=== PATIENT | female | born 1975 | race Caucasian/White ===

== ENCOUNTER → 2016-12-31 | Outpatient (CLI) | payer BC ==
[2016-12-31 16:42] VITALS: BMI 34.5
[2016-12-31 16:51] VITALS: BP 137/88; PULSE 88; RESP 16; TEMP 98.1
[2016-12-31 18:07] LABS: CH 31.5; CHCM 33.7; HCT 39.8 % (34.0-46.0); HDW 2.39; HGB 13.5 gm/dL (11.4-16.0); MCH 31.8 pg (25.0-35.0); MCHC 33.9 g/dL (31.0-37.0); MCV 93.9 fL (80.0-100.0); Mean Platelet Volume 7.2; RBC 4.23 m/uL (3.80-5.40); RDW 12.6 % (11.5-15.5); WBC 8.8 k/uL (3.8-10.6)
[2016-12-31 18:31] LABS: INR 1.1 (<1.1); Partial Thromboplastin Time 25.4 sec (22.0-30.0); Prothrombin Time 10.8 sec (9.0-12.0)
[2016-12-31 18:38] LABS: ALT 45 U/L (9-52); AST 32 U/L (14-36); Alkaline Phosphatase 65 U/L (38-126); Anion Gap 11 mmol/L; Blood Urea Nitrogen 20 mg/dL (7-17); Calcium 9.7 mg/dL (8.4-10.2); Carbon Dioxide 29 mmol/L (22-30); Chloride 102 mmol/L (98-107); Cholesterol 174 mg/dL (<200); Glucose 78 mg/dL (74-99); HDL Cholesterol 52 mg/dL (40-60); Iron 51 ug/dL (37-170); Non-African American GFR(MDRD) >60 (>60 ml/min/1.73 sqM); Phosphorous 3.8 mg/dL (2.5-4.5); Potassium 4.8 mmol/L (3.5-5.1); Sodium 142 mmol/L (137-145); Total Bilirubin 0.4 mg/dL (0.2-1.3); Total Protein 6.7 g/dL (6.3-8.2); Triglycerides 98 mg/dL (<150)
[2016-12-31 18:50] LABS: % Iron Saturation 19.2 % (20-50); Prealbumin 19 mg/dL (18-36); Total Iron Binding Capacity 266 ug/dL (265-497)
[2016-12-31 19:43] LABS: Vitamin B12 711 pg/mL (239-931)
[2017-01-05 18:28] LABS: Selenium 161 mcg/L (63-160)
--- NOTE | 2017-02-04 00:34 | P.PN ---
Progress Note - Text DATE OF SERVICE: 12/31/2016 CHIEF COMPLAINT: Followup sleeve gastrectomy. 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 She is now 6 months out from her procedure. Her highest weight for her 5 feet 3 frame was 273 pound. [place] body weight is 140 pounds. Today she comes in weighing 198 pounds. She has lost 75 pound in 6 months. Percent excess weight loss is 63%. Body mass index reduced from 47.7 down to 34.6. BMI point reduction is 13. In the last 3 months ago she has already lost another 19 pounds. No reports of gastroesophageal reflux disease. She does report intermittent constipation. She reports taking moderate amount of vitamin C . Her personal goal is to lose a minimum of 100 pounds. PAST MEDICAL HISTORY: 1. Osteoarthritis of the bilateral knees, improved. 2. Osteoarthritis of the bilateral hips, improved. 3. Osteoarthritis of the lower back, improved. 4. Seasonal allergies. 5. Depression, improved. 6. Obstructive sleep apnea, improved. 7. Metabolic syndrome, improved. PAST SURGICAL HISTORY: 1. . 2. Cholecystectomy. 3. Tubal ligation. 4. Foot surgery. 5. Knee surgery. 6. Nasal surgery. 7. Dental surgery. 8. Upper endoscopy. 9. Sleeve gastrectomy. MEDICATIONS: 1. Zinc. 2. Vitamin A. 3. MiraLax. 4. Omeprazole. 5. Nystatin powder. 6. Meclizine. 7. Vitamin D. 8. Cymbalta. 9. Zyrtec. 10. Nitroglycerin ointment, rectal. ALLERGIES: Denies. SOCIAL HISTORY: Lifelong nontobacco user. No heavy alcohol use. FAMILY HISTORY: Pertinent for morbid obesity. REVIEW OF SYSTEMS: CONSTITUTIONAL: Highest weight of 273 pounds. [place] body weight of 140 pounds. Attained weight loss of 75 pounds. Percent weight loss of 56%. Recent weight loss of 19 pounds in 3 months. GASTROINTESTINAL: Resolved gastroesophageal reflux disease. She has constipation. RESPIRATORY: Resolved obstructive sleep apnea. Denies dyspnea on exertion. MUSCULOSKELETAL: Resolved osteoarthritis of the lower back including hips and knees. HEENT: Wears glasses. No reports of dysphagia. No reports of troubles with hearing. ENDOCRINE: No reports of active diabetes for hypothyroidism. CARDIOVASCULAR: No reports of recent chest pain or heart attack. PSYCH: History of depression. No recent psychosis. HEMATOLOGIC: No reports of easy bruising or bleeding. No reports of DVTs or pulmonary embolism. NEURO: No reports of strokes or seizure disorders. PHYSICAL EXAM: VITAL SIGNS: 98.1, 88, 16, 137/88, 5 foot 3-1/2, 198 pounds. Body mass index of 34.6. ABDOMEN: Soft, nontender, nondistended. No palpable incisional hernias. CARDIOVASCULAR: Regular rate, Regular rhythm. 2 + radial pulse. GENERAL: Well-developed female in no acute distress. HEENT: No scleral icterus. Extraocular movements grossly intact. Moist buccal mucosa. Head is atraumatic, normocephalic. NECK: Neck is supple without lymphadenopathy. No jugular venous distention. CHEST: Nonlabored respiratons. Equal bilateral excursions. MUSCULOSKELETAL: Trace 1+ bilateral pitting edema. No clubbing, cyanosis. NEURO: Cranial nerves II through XII grossly intact. No focal or lateralizing signs. PSYCH: Appropriate affect. Alert and oriented to person, place and time. LABS: Hemoglobin normal at 13.5. BUN elevated at 20. Percent excess weight loss low at 19.2 for iron. LDL elevated at 102. Vitamin D moderately elevated at 106. Sodium elevated. ASSESSMENT: 1. Status post sleeve gastrectomy. 2. Body mass index reduced from 47.7 down to 34.6. 3. Inadequate protein intake. 4. Vitamin A deficiency. 5. Zinc deficiency. 6. Morbid obesity due to excess calories. 7. Osteoarthritis of lower back secondary to morbid obesity. 8. Osteoarthritis of bilateral knees moderate to severe secondary to morbid obesity. 9. Osteoarthritis of the bilateral hips secondary to morbid obesity, moderate. 10. Depression without psychosis. 11. Hypertensive heart disease without cardiomyopathy, improved. 12. Obstructive sleep apnea, resolved. 13. Metabolic syndrome, improved. 14. Dietary surveillance and counseling. 15. Zinc deficiency. 16. Vitamin D excess. 17. Medical noncompliance to dietary regimen following bariatric surgery. 18. Selenium excess. PLAN: 1. She has excellent nutrition without deficiencies. I have asked her to cut back on her vitamin D intake. 2. Also I have asked her to evaluate her selenium exposure. Selenium-rich foods were reviewed. 3. As she is doing remarkably well, recommend followup in 3 months; otherwise 9 months' postop for March 2017. 4. She does have history of anal fissures where she will continue with her present treatment. 5. Recommend followup sooner should she develop any abdominal pain.
== END | disposition home or self-care (01) ==
LOC: BARWHC3 15:37
PROVIDERS: ATTEND Surgery Plastic and Reconstructive Surgery
DX: Z48.815 Encounter for surgical aftercare following surgery on the digestive system (principal); Z71.3 Dietary counseling and surveillance; E66.01 Morbid (severe) obesity due to excess calories; Z98.84 Bariatric surgery status; E21.1 Secondary hyperparathyroidism, not elsewhere classified; E89.1 Postprocedural hypoinsulinemia; D50.8 Other iron deficiency anemias; E44.0 Moderate protein-calorie malnutrition; E55.9 Vitamin D deficiency, unspecified; K74.1 Hepatic sclerosis; N19 Unspecified kidney failure; K50.90 Crohn's disease, unspecified, without complications
CPT/HCPCS: 80053; 80061; 82306; 82525; 82607; 82728; 82746; 83036; 83540; 83550; 83735; 83970; 84100; 84134; 84255; 84425; 84443; 84590; 84630; 85027; 85610; 85730; 99211

== ENCOUNTER → 2017-05-13 | Outpatient (CLI) | payer BC ==
[2017-05-13 16:21] VITALS: BMI 31.2
[2017-05-13 16:39] VITALS: BP 110/57; PULSE 66; TEMP 97.7
[2017-05-13 18:02] LABS: CH 31.6; CHCM 33.8; HCT 39.6 % (34.0-46.0); HDW 2.36; HGB 13.7 gm/dL (11.4-16.0); MCH 32.5 pg (25.0-35.0); MCHC 34.6 g/dL (31.0-37.0); MCV 93.8 fL (80.0-100.0); Mean Platelet Volume 6.9; RBC 4.22 m/uL (3.80-5.40); RDW 12.8 % (11.5-15.5); WBC 7.1 k/uL (3.8-10.6)
[2017-05-13 18:10] LABS: Partial Thromboplastin Time 24.5 sec (22.0-30.0); Prothrombin Time 10.4 sec (9.0-12.0)
[2017-05-13 18:12] LABS: ALT 37 U/L (9-52); AST 29 U/L (14-36); Alkaline Phosphatase 53 U/L (38-126); Anion Gap 8 mmol/L; Blood Urea Nitrogen 23 mg/dL (7-17); Calcium 9.6 mg/dL (8.4-10.2); Carbon Dioxide 27 mmol/L (22-30); Chloride 103 mmol/L (98-107); Cholesterol 202 mg/dL (<200); Glucose 73 mg/dL (74-99); HDL Cholesterol 59 mg/dL (40-60); Iron 68 ug/dL (37-170); Magnesium 2.1 mg/dL (1.6-2.3); Non-African American GFR(MDRD) >60 (>60 ml/min/1.73 sqM); Phosphorous 4.4 mg/dL (2.5-4.5); Potassium 4.7 mmol/L (3.5-5.1); Sodium 138 mmol/L (137-145); Total Bilirubin 0.5 mg/dL (0.2-1.3); Total Protein 6.6 g/dL (6.3-8.2)
[2017-05-13 18:23] LABS: % Iron Saturation 25.5 % (20-50); Prealbumin 23 mg/dL (18-36); Total Iron Binding Capacity 267 ug/dL (265-497)
[2017-05-13 19:17] LABS: Vitamin B12 585 pg/mL (239-931)
[2017-05-13 21:00] LABS: Hemoglobin A1C 5.1 % (4.2-6.1)
[2017-05-22 14:20] LABS: Selenium 116 mcg/L (63-160)
--- NOTE | 2017-06-07 00:24 | P.PN ---
Progress Note - Text DATE OF SERVICE: 05/13/2017 CHIEF COMPLAINT: Followup sleeve gastrectomy. 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 She is now 10 months out from her procedure. Her highest weight for her 5 feet 3 frame was 273 pound. [place] body weight is 140 pounds. Today she comes in weighing 179 pounds. She has lost 94 pound in 10 months. Percent excess weight loss is 71 %. Body mass index reduced from 47.7 down to 31.2. BMI point reduction is 16.5. In the last 4 months, she has lost another 19 pounds. No reports of gastroesophageal reflux disease. She reports moderate skin along her arms and thighs. No reports of gastroesophageal reflux disease. No reports of dumping syndrome. Her constipation is resolved. PAST MEDICAL HISTORY: 1. Osteoarthritis of the bilateral knees, improved. 2. Osteoarthritis of the bilateral hips, improved. 3. Osteoarthritis of the lower back, improved. 4. Seasonal allergies. 5. Depression, improved. 6. Obstructive sleep apnea, improved. 7. Metabolic syndrome, improved. PAST SURGICAL HISTORY: 1. . 2. Cholecystectomy. 3. Tubal ligation. 4. Foot surgery. 5. Knee surgery. 6. Nasal surgery. 7. Dental surgery. 8. Upper endoscopy. 9. Sleeve gastrectomy. MEDICATIONS: 1. Zinc. 2. Vitamin A. 3. MiraLax. 4. Omeprazole. 5. Nystatin powder. 6. Meclizine. 7. Vitamin D. 8. Cymbalta. 9. Zyrtec. 10. Nitroglycerin ointment, rectal. ALLERGIES: Denies. SOCIAL HISTORY: Lifelong nontobacco user. No heavy alcohol use. FAMILY HISTORY: Pertinent for morbid obesity. REVIEW OF SYSTEMS: CONSTITUTIONAL: Highest weight of 273 pounds. [place] body weight of 140 pounds. Attained weight loss of 94 pounds. Percent weight loss of 71%. Recent weight loss of 19 pounds in 3 months. GASTROINTESTINAL: Resolved gastroesophageal reflux disease. Constipation resolved. RESPIRATORY: Resolved obstructive sleep apnea. Denies dyspnea on exertion. MUSCULOSKELETAL: Resolved osteoarthritis of the lower back including hips and knees. HEENT: Wears glasses. No reports of dysphagia. No reports of troubles with hearing. ENDOCRINE: No reports of active diabetes for hypothyroidism. CARDIOVASCULAR: No reports of recent chest pain or heart attack. PSYCH: History of depression. No recent psychosis. HEMATOLOGIC: No reports of easy bruising or bleeding. No reports of DVTs or pulmonary embolism. NEURO: No reports of strokes or seizure disorders. PHYSICAL EXAM: VITAL SIGNS: 5 foot 3-1/2, 179 pounds. Body mass index of 31.2. Vital Signs 05/13/17 16:36 Temperature 97.7 F Pulse Rate 66 Blood Pressure 110/57 ABDOMEN: Soft, nontender, nondistended. No palpable incisional hernias. CARDIOVASCULAR: Regular rate, Regular rhythm. 2 + radial pulse. GENERAL: Well-developed female in no acute distress. HEENT: No scleral icterus. Extraocular movements grossly intact. Moist buccal mucosa. Head is atraumatic, normocephalic. NECK: Neck is supple without lymphadenopathy. No jugular venous distention. CHEST: Nonlabored respiratons. Equal bilateral excursions. MUSCULOSKELETAL: No clubbing, cyanosis or edema. NEURO: Cranial nerves II through XII grossly intact. No focal or lateralizing signs. PSYCH: Appropriate affect. Alert and oriented to person, place and time. SKIN: Good skin turgor. Well perfused. Has panniculitis. LABS: Laboratory Last Values WBC 7.1 k/uL (3.8-10.6) 05/13/17 17:40 RBC 4.22 m/uL (3.80-5.40) 05/13/17 17:40 Hgb 13.7 gm/dL (11.4-16.0) 05/13/17 17:40 Hct 39.6 % (34.0-46.0) 05/13/17 17:40 MCV 93.8 fL (80.0-100.0) 05/13/17 17:40 MCH 32.5 pg (25.0-35.0) 05/13/17 17:40 MCHC 34.6 g/dL (31.0-37.0) 05/13/17 17:40 RDW 12.8 % (11.5-15.5) 05/13/17 17:40 Plt Count 249 k/uL (150-450) 05/13/17 17:40 PT 10.4 sec (9.0-12.0) 05/13/17 17:40 INR 1.0 (<1.2) 05/13/17 17:40 APTT 24.5 sec (22.0-30.0) 05/13/17 17:40 Sodium 138 mmol/L (137-145) 05/13/17 17:40 Potassium 4.7 mmol/L (3.5-5.1) 05/13/17 17:40 Chloride 103 mmol/L (98-107) 05/13/17 17:40 Carbon Dioxide 27 mmol/L (22-30) 05/13/17 17:40 Anion Gap 8 mmol/L 05/13/17 17:40 BUN 23 mg/dL (7-17) H 05/13/17 17:40 Creatinine 0.70 mg/dL (0.52-1.04) 05/13/17 17:40 Est GFR (MDRD) Af Amer >60 (>60 ml/min/1.73 sqM) 05/13/17 17:40 Est GFR (MDRD) Non-Af >60 (>60 ml/min/1.73 sqM) 05/13/17 17:40 Glucose 73 mg/dL (74-99) L 05/13/17 17:[address] Glu mg/dL 100 mg/dL 05/13/17 17:40 Hemoglobin A1c 5.1 % (4.2-6.1) 05/13/17 17:40 Calcium 9.6 mg/dL (8.4-10.2) 05/13/17 17:40 Phosphorus 4.4 mg/dL (2.5-4.5) 05/13/17 17:40 Magnesium 2.1 mg/dL (1.6-2.3) 05/13/17 17:40 Iron 68 ug/dL (37-170) 05/13/17 17:40 TIBC 267 ug/dL (265-497) 05/13/17 17:40 % Saturation 25.5 % (20-50) 05/13/17 17:40 Ferritin 100 ng/mL (6-137) 05/13/17 17:40 Total Bilirubin 0.5 mg/dL (0.2-1.3) 05/13/17 17:40 AST 29 U/L (14-36) 05/13/17 17:40 ALT 37 U/L (9-52) 05/13/17 17:40 Alkaline Phosphatase 53 U/L (38-126) 05/13/17 17:40 Total Protein 6.6 g/dL (6.3-8.2) 05/13/17 17:40 Albumin 4.3 g/dL (3.5-5.0) 05/13/17 17:40 Prealbumin 23 mg/dL (18-36) 05/13/17 17:40 Triglycerides 91 mg/dL (<150) 05/13/17 17:40 Cholesterol 202 mg/dL (<200) H 05/13/17 17:40 LDL Cholesterol, Calc 125 mg/dL (0-99) H 05/13/17 17:40 HDL Cholesterol 59 mg/dL (40-60) 05/13/17 17:40 Vitamin A 49 ug/dL (38-106) 05/13/17 17:40 Vitamin B1 56 ug/L (38-122) 05/13/17 17:40 Vitamin B12 585 pg/mL (239-931) 05/13/17 17:40 Vitamin D 25-Hydroxy 42.2 ng/mL (30.0-100.0) 05/13/17 17:40 Folate >20.00 ng/mL (>2.75) 05/13/17 17:40 TSH 2.130 mIU/L (0.465-4.680) 05/13/17 17:40 PTH Intact 17.5 pg/mL (14.0-72.0) 05/13/17 17:40 Copper 1262 ug/L (810-1990) 05/13/17 17:40 Selenium 116 mcg/L (63-160) 05/13/17 17:40 Zinc 82 ug/dL (60-130) 05/13/17 17:40 ASSESSMENT: 1. Status post sleeve gastrectomy. 2. Body mass index reduced from 47.7 down to 31.2. 3. Panniculitis. 4. Morbid obesity due to excess calories, resolved. 5. Osteoarthritis of lower back secondary to morbid obesity, resolved. 6. Osteoarthritis of bilateral knees moderate to severe secondary to morbid obesity, resolved. 7. Osteoarthritis of the bilateral hips secondary to morbid obesity, moderate, resolved. 8. Depression without psychosis, stable 9. Hypertensive heart disease without cardiomyopathy, resolved. 10. Obstructive sleep apnea, resolved. 11. Metabolic syndrome, resolved. PLAN: 1. Recommend bariatric metabolic panel. 2. Recommend Nystatin powder for panniculitis. 3. May benefit from panniculectomy in the future. 4. Follow-up with [place] office in 2-3 weeks.
== END ==
LOC: BARWHC3 15:31
PROVIDERS: ATTEND Surgery Plastic and Reconstructive Surgery
DX: Z48.815 Encounter for surgical aftercare following surgery on the digestive system (principal); E66.01 Morbid (severe) obesity due to excess calories; M47.816 Spondylosis without myelopathy or radiculopathy, lumbar region; M17.0 Bilateral primary osteoarthritis of knee; M16.0 Bilateral primary osteoarthritis of hip; F32.9 Major depressive disorder, single episode, unspecified; I11.9 Hypertensive heart disease without heart failure; M79.3 Panniculitis, unspecified; Z68.31 Body mass index [BMI] 31.0-31.9, adult; Z98.84 Bariatric surgery status; Z79.899 Other long term (current) drug therapy
CPT/HCPCS: 36415; 80053; 80061; 82306; 82525; 82607; 82728; 82746; 83036; 83540; 83550; 83735; 83970; 84100; 84134; 84255; 84425; 84443; 84590; 84630; 85027; 85610; 85730; 97803; 99211

== ENCOUNTER → 2017-07-15 | Outpatient (CLI) | payer BC ==
[2017-07-15 15:52] LABS: CH 32.2; CHCM 34.4; HCT 40.5 % (34.0-46.0); HDW 2.32; HGB 13.3 gm/dL (11.4-16.0); MCV 94.1 fL (80.0-100.0); Mean Platelet Volume 7.6; RDW 12.9 % (11.5-15.5); WBC 7.1 k/uL (3.8-10.6)
[2017-07-15 16:10] LABS: Partial Thromboplastin Time 24.1 sec (22.0-30.0); Prothrombin Time 10.1 sec (9.0-12.0)
[2017-07-15 16:13] LABS: ALT 35 U/L (9-52); AST 26 U/L (14-36); Alkaline Phosphatase 53 U/L (38-126); Anion Gap 6 mmol/L; Blood Urea Nitrogen 23 mg/dL (7-17); Calcium 9.8 mg/dL (8.4-10.2); Carbon Dioxide 28 mmol/L (22-30); Chloride 102 mmol/L (98-107); Cholesterol 187 mg/dL (<200); Glucose 83 mg/dL (74-99); HDL Cholesterol 66 mg/dL (40-60); Magnesium 1.9 mg/dL (1.6-2.3); Non-African American GFR(MDRD) >60 (>60 ml/min/1.73 sqM); Phosphorus 4.3 mg/dL (2.5-4.5); Sodium 136 mmol/L (137-145); Total Bilirubin 0.3 mg/dL (0.2-1.3); Total Protein 6.5 g/dL (6.3-8.2)
[2017-07-15 16:57] LABS: Vitamin B12 687 pg/mL (239-931)
[2017-07-15 17:02] VITALS: BP 126/64; PULSE 66; RESP 16; TEMP 98.3; BMI 30.4
[2017-07-15 19:36] LABS: Hemoglobin A1C 5.1 % (4.2-6.1)
[2017-07-16 00:54] LABS: Iron Saturation 19.55 (12.00-45.00); Iron(FE) 52 ug/dL (50-170); Total Iron Binding Capacity 266 ug/dL (228-460)
[2017-07-17 17:31] LABS: Selenium 120 mcg/L (63-160)
--- NOTE | 2017-07-26 18:42 | P.PN ---
Subjective DATE OF SERVICE: 07/15/2017 CHIEF COMPLAINT: Followup sleeve gastrectomy. 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 She is 1 year out from her procedure. Her highest weight for her 5 feet 3-2 frame was 273 pound. [place] body weight is 140 pounds. Today she comes in weighing 174 pounds. She has lost 99 pound in 1 year. Percent excess weight loss is 74 %. Body mass index reduced from 47.7 down to 30.5. Her sleep apnea is resolved. She reports more energy. She is actually walking at least 27 miles a week. Her osteoarthritis of her hip and knees is moderately improved since 100 pound weight loss. She reports troubles with her pannus. She has history of severe scar of her abdomen which she seeks resection. Now she presents for her anniversary. PAST MEDICAL HISTORY: 1. Osteoarthritis of the bilateral knees, improved. 2. Osteoarthritis of the bilateral hips, improved. 3. Osteoarthritis of the lower back, improved. 4. Seasonal allergies. 5. Depression, improved. 6. Obstructive sleep apnea, improved. 7. Metabolic syndrome, improved. PAST SURGICAL HISTORY: 1. . 2. Cholecystectomy. 3. Tubal ligation. 4. Foot surgery. 5. Knee surgery. 6. Nasal surgery. 7. Dental surgery. 8. Upper endoscopy. 9. Sleeve gastrectomy. MEDICATIONS: 1. Zinc. 2. Vitamin A. 3. MiraLax. 4. Omeprazole. 5. Nystatin powder. 6. Meclizine. 7. Vitamin D. 8. Cymbalta. 9. Zyrtec. 10. Nitroglycerin ointment, rectal. ALLERGIES: Denies. SOCIAL HISTORY: Lifelong nontobacco user. No heavy alcohol use. FAMILY HISTORY: Pertinent for morbid obesity. REVIEW OF SYSTEMS: CONSTITUTIONAL: Her highest weight for her 5 feet 3-10/27 frame was 273 pound. [place] body weight is 140 pounds. Today she comes in weighing 174 pounds. She has lost 99 pound in 1 year. Percent excess weight loss is 74 %. Body mass index reduced from 47.7 down to 30.5. GASTROINTESTINAL: Resolved gastroesophageal reflux disease. Constipation resolved. RESPIRATORY: Resolved obstructive sleep apnea. Denies dyspnea on exertion. MUSCULOSKELETAL: Resolved osteoarthritis of the lower back including hips and knees. HEENT: Wears glasses. No reports of dysphagia. No reports of troubles with hearing. ENDOCRINE: No reports of active diabetes for hypothyroidism. CARDIOVASCULAR: No reports of recent chest pain or heart attack. PSYCH: History of depression. No recent psychosis. HEMATOLOGIC: No reports of easy bruising or bleeding. No reports of DVTs or pulmonary embolism. NEURO: No reports of strokes or seizure disorders. PHYSICAL EXAM: VITAL SIGNS: 5 foot 3-1/2, 174 pounds. Body mass index of 30.5. Vital Signs Temp 98.3 F 07/15/17 16:12 Pulse 66 07/15/17 16:12 Resp 16 07/15/17 16:12 BP 126/64 07/15/17 16:12 Pulse Ox ABDOMEN: Soft, nontender, nondistended. No palpable incisional hernias. Pannus is 5 pounds and hangs over pubis by 8 cm. CARDIOVASCULAR: Regular rate, Regular rhythm. 2 + radial pulse. GENERAL: Well-developed female in no acute distress. HEENT: No scleral icterus. Extraocular movements grossly intact. Moist buccal mucosa. Head is atraumatic, normocephalic. NECK: Neck is supple without lymphadenopathy. No jugular venous distention. CHEST: Nonlabored respiratons. Equal bilateral excursions. MUSCULOSKELETAL: No clubbing, cyanosis or edema. NEURO: Cranial nerves II through XII grossly intact. No focal or lateralizing signs. PSYCH: Appropriate affect. Alert and oriented to person, place and time. SKIN: Good skin turgor. Well perfused. Has panniculitis. ASSESSMENT: 1. Status post sleeve gastrectomy. 2. Body mass index reduced from 47.7 down to 30.5. 3. Panniculitis. 4. Morbid obesity due to excess calories, resolved. 5. Osteoarthritis of lower back secondary to morbid obesity, resolved. 6. Osteoarthritis of bilateral knees moderate to severe secondary to morbid obesity, resolved. 7. Osteoarthritis of the bilateral hips secondary to morbid obesity, moderate, resolved. 8. Depression without psychosis, stable 9. Hypertensive heart disease without cardiomyopathy, resolved. 10. Obstructive sleep apnea, resolved. 11. Metabolic syndrome, resolved. PLAN: 1. Recommend bariatric metabolic panel. 2. She is almost 100 pounds consistent weight loss. Her personal goal is to lose more weight. 3. Recommend evaluation for panniculectomy as she has persistent problems with her skin. 4. Recommend Nystatin powder. LABS: Laboratory Last Values WBC 7.1 k/uL (3.8-10.6) 07/15/17 15:39 RBC 4.30 m/uL (3.80-5.40) 07/15/17 15:39 Hgb 13.3 gm/dL (11.4-16.0) 07/15/17 15:39 Hct 40.5 % (34.0-46.0) 07/15/17 15:39 MCV 94.1 fL (80.0-100.0) 07/15/17 15:39 MCH 31.0 pg (25.0-35.0) 07/15/17 15:39 MCHC 33.0 g/dL (31.0-37.0) 07/15/17 15:39 RDW 12.9 % (11.5-15.5) 07/15/17 15:39 Plt Count 236 k/uL (150-450) 07/15/17 15:39 PT 10.1 sec (9.0-12.0) 07/15/17 15:39 INR 1.0 (<1.2) 07/15/17 15:39 APTT 24.1 sec (22.0-30.0) 07/15/17 15:39 Sodium 136 mmol/L (137-145) L 07/15/17 15:39 Potassium 4.0 mmol/L (3.5-5.1) 07/15/17 15:39 Chloride 102 mmol/L (98-107) 07/15/17 15:39 Carbon Dioxide 28 mmol/L (22-30) 07/15/17 15:39 Anion Gap 6 mmol/L 07/15/17 15:39 BUN 23 mg/dL (7-17) H 07/15/17 15:39 Creatinine 0.70 mg/dL (0.52-1.04) 07/15/17 15:39 Est GFR (MDRD) Af Amer >60 (>60 ml/min/1.73 sqM) 07/15/17 15:39 Est GFR (MDRD) Non-Af >60 (>60 ml/min/1.73 sqM) 07/15/17 15:39 Glucose 83 mg/dL (74-99) 07/15/17 15:[address] Glu mg/dL 100 mg/dL 07/15/17 15:39 Hemoglobin A1c 5.1 % (4.2-6.1) 07/15/17 15:39 Calcium 9.8 mg/dL (8.4-10.2) 07/15/17 15:39 Phosphorus 4.3 mg/dL (2.5-4.5) 07/15/17 15:39 Magnesium 1.9 mg/dL (1.6-2.3) 07/15/17 15:39 Iron 52 ug/dL (50-170) 07/15/17 15:39 TIBC 266 ug/dL (228-460) 07/15/17 15:39 Iron Saturation 19.55 (12.00-45.00) 07/15/17 15:39 Ferritin 120.4 ng/mL (10.0-291.0) 07/15/17 15:39 Total Bilirubin 0.3 mg/dL (0.2-1.3) 07/15/17 15:39 AST 26 U/L (14-36) 07/15/17 15:39 ALT 35 U/L (9-52) 07/15/17 15:39 Alkaline Phosphatase 53 U/L (38-126) 07/15/17 15:39 Total Protein 6.5 g/dL (6.3-8.2) 07/15/17 15:39 Albumin 4.1 g/dL (3.5-5.0) 07/15/17 15:39 Prealbumin 20.0 mg/dL (18.0-42.0) 07/15/17 15:39 Triglycerides 113 mg/dL (<150) 07/15/17 15:39 Cholesterol 187 mg/dL (<200) 07/15/17 15:39 LDL Cholesterol, Calc 98 mg/dL (0-99) 07/15/17 15:39 HDL Cholesterol 66 mg/dL (40-60) H 07/15/17 15:39 Vitamin A 44 ug/dL (38-106) 07/15/17 15:39 Vitamin B1 50 ug/L (38-122) 07/15/17 15:39 Vitamin B12 687 pg/mL (239-931) 07/15/17 15:39 Vitamin D 25-Hydroxy 41.8 ng/mL (30.0-100.0) 07/15/17 15:39 Folate >24.0 ng/mL 07/15/17 15:39 TSH 2.600 mIU/L (0.465-4.680) 07/15/17 15:39 PTH Intact 7.0 pg/mL (14.0-72.0) L 07/15/17 15:39 Copper 1148 ug/L (810-1990) 07/15/17 15:39 Selenium 120 mcg/L (63-160) 07/15/17 15:39 Zinc 67 ug/dL (60-130) 07/15/17 15:39 Objective - Vital Signs Vital signs: Intake & Output 07/14/17 07/15/17 07/15/17 18:59 06:59 18:59 Weight 79.243 kg - Labs CBC & Chem 7: 07/15/17 15:39 07/15/17 15:39 Labs: Abnormal Lab Results - Last 24 Hours (Table) 07/15/17 Range/Units 15:39 Sodium 136 L (137-145) mmol/L BUN 23 H (7-17) mg/dL HDL Cholesterol 66 H (40-60) mg/dL
== END | disposition home or self-care (01) ==
LOC: BARWHC3 15:42
PROVIDERS: ATTEND Surgery Plastic and Reconstructive Surgery
DX: Z48.815 Encounter for surgical aftercare following surgery on the digestive system (principal); M79.3 Panniculitis, unspecified; F32.9 Major depressive disorder, single episode, unspecified; E66.01 Morbid (severe) obesity due to excess calories; E21.1 Secondary hyperparathyroidism, not elsewhere classified; E89.1 Postprocedural hypoinsulinemia; D50.9 Iron deficiency anemia, unspecified; K90.9 Intestinal malabsorption, unspecified; E44.0 Moderate protein-calorie malnutrition; E55.9 Vitamin D deficiency, unspecified; K74.1 Hepatic sclerosis; N19 Unspecified kidney failure; K50.90 Crohn's disease, unspecified, without complications; Z79.899 Other long term (current) drug therapy; Z98.84 Bariatric surgery status
CPT/HCPCS: 80053; 80061; 82306; 82525; 82607; 82728; 82746; 83036; 83540; 83550; 83735; 83970; 84100; 84134; 84255; 84425; 84443; 84590; 84630; 85027; 85610; 85730; 97802; 99211

== ENCOUNTER → 2018-06-02 | Outpatient (CLI) | payer BC ==
[2018-06-02 16:39] VITALS: BP 115/56; PULSE 75; TEMP 98.2; BMI 33.8
--- NOTE | 2018-06-02 18:45 | P.PN ---
Subjective Progress Note Date: 06/02/18 HPI: Patient is 1 year out. She had a tummy tuck and bilateral thigh plasty with complications now with chronic nerve pain. She reports emotional eating now with weight gain from 165 lbs to almost 200 pounds. She is tearful at her weight gain. ABDOMEN: Soft and nontender. No hernia MUSCULOSKELETAL: Incisions clean dry and intact along the bilateral thighs PLAN: 1. Recommend labs 2. Recommend 2 week high-protein low caloric diet 3. Follow-up in [place] 3 weeks Objective - Vital Signs Vital signs: Vital Signs Temp 98.2 F 06/02/18 16:37 Pulse 75 06/02/18 16:37 Resp BP 115/56 06/02/18 16:37 Pulse Ox Intake & Output 06/01/18 06/02/18 06/02/18 18:59 06:59 18:59 Weight 87.997 kg
== END | disposition home or self-care (01) ==
LOC: BARWHC3 15:44
PROVIDERS: ATTEND Surgery Plastic and Reconstructive Surgery
DX: E66.01 Morbid (severe) obesity due to excess calories (principal); T84.89XD Other specified complication of internal orthopedic prosthetic devices, implants and grafts, subsequent encounter; G89.28 Other chronic postprocedural pain; M79.2 Neuralgia and neuritis, unspecified; Z68.33 Body mass index [BMI] 33.0-33.9, adult; Z96.643 Presence of artificial hip joint, bilateral
CPT/HCPCS: 97803; 99211

== ENCOUNTER → 2018-06-02 | Outpatient (CLI) | payer BC ==
[2018-06-02 09:03] LABS: Prothrombin Time 9.5 sec (9.0-12.0)
[2018-06-02 09:09] LABS: HCT 42.8 % (34.0-46.0); HGB 14.2 gm/dL (11.4-16.0); MCH 29.6 pg (25.0-35.0); MCHC 33.2 g/dL (31.0-37.0); MCV 89.3 fL (80.0-100.0); Platelet Count 262 k/uL (150-450); RBC 4.79 m/uL (3.80-5.40); WBC 7.4 k/uL (3.8-10.6)
[2018-06-02 09:17] LABS: ALT 27 U/L (9-52); AST 24 U/L (14-36); Albumin 4.2 g/dL (3.5-5.0); Alkaline Phosphatase 62 U/L (38-126); Anion Gap 7 mmol/L; Blood Urea Nitrogen 23 mg/dL (7-17); Calcium 10.1 mg/dL (8.4-10.2); Carbon Dioxide 31 mmol/L (22-30); Chloride 101 mmol/L (98-107); Cholesterol 226 mg/dL (<200); Glucose 90 mg/dL (74-99); HDL Cholesterol 69 mg/dL (40-60); LDL Cholesterol,Calculated 135 mg/dL (0-99); Magnesium 2.1 mg/dL (1.6-2.3); Phosphorus 4.7 mg/dL (2.5-4.5); Sodium 139 mmol/L (137-145); Total Bilirubin 0.4 mg/dL (0.2-1.3); Total Protein 6.7 g/dL (6.3-8.2); Triglycerides 109 mg/dL (<150)
[2018-06-02 17:53] LABS: Hemoglobin A1C 5.2 % (4.0-6.0)
[2018-06-02 18:33] LABS: Iron Saturation 28.43 (12.00-45.00)
[2018-06-02 18:41] LABS: Vitamin D 25 Hydroxy 72.2 ng/mL (30.0-100.0)
[2018-06-02 18:45] LABS: Parathyroid Hormone Intact 18.9 pg/mL (14.0-72.0)
[2018-06-02 18:49] LABS: Folate, Serum >24.0 ng/mL
[2018-06-03 15:07] LABS: Zinc, Serum 77 ug/dL (60-130)
[2018-06-04 05:18] LABS: Vitamin B1 70 ug/L (38-122)
[2018-06-04 05:29] LABS: Vitamin A 54 ug/dL (38-106)
[2018-06-04 16:49] LABS: Selenium 128 mcg/L (63-160)
== END | disposition home or self-care (01) ==
LOC: LABWHC1 07:38
PROVIDERS: ATTEND Surgery Plastic and Reconstructive Surgery
DX: E66.01 Morbid (severe) obesity due to excess calories (principal); D50.9 Iron deficiency anemia, unspecified; E44.0 Moderate protein-calorie malnutrition; E55.9 Vitamin D deficiency, unspecified; N19 Unspecified kidney failure; K50.90 Crohn's disease, unspecified, without complications; E21.1 Secondary hyperparathyroidism, not elsewhere classified; E89.1 Postprocedural hypoinsulinemia; K74.1 Hepatic sclerosis
CPT/HCPCS: 36415; 80053; 80061; 82306; 82525; 82607; 82728; 82746; 83036; 83540; 83550; 83735; 83970; 84100; 84134; 84255; 84425; 84443; 84590; 84630; 85027; 85610; 85730

== ENCOUNTER → 2019-07-06 | Outpatient (CLI) | payer BC ==
[2019-07-06 15:51] VITALS: BMI 38.0
== END | disposition home or self-care (01) ==
LOC: BARWHC3 14:20
PROVIDERS: ATTEND Surgery Plastic and Reconstructive Surgery
DX: E66.01 Morbid (severe) obesity due to excess calories (principal); Z68.38 Body mass index [BMI] 38.0-38.9, adult
CPT/HCPCS: 97803

== ENCOUNTER → 2020-12-19 | Outpatient (CLI) | payer BC ==
[2020-12-19 16:29] VITALS: BP 149/90; PULSE 97; RESP 16; TEMP 97.8; BMI 47.4
--- NOTE | 2020-12-19 17:02 | P.HPBAR ---
Bariatric H&P - History & Physicial H&P Date: 12/19/20 History & Physicial: Visit/CC: f/u Patient initial contact: Initial weight: 121.608 kg Initial weight in pounds: 268.10 Height: 5 ft 3.5 in Initial BMI: 46.7 Last weight: Current weight: 123.377 kg Current weight in pounds: 272.00 Current BMI: 47.4 [place] body weight (based on NIH guidelines): 53.297 kg Excess body weight loss: The patient is a 45 year-old F who presents for Bariatric Assessment. DATE OF SERVICE: 12/19/2020 CHIEF COMPLAINT: Followup sleeve gastrectomy. 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 She is 5 years out from her procedure. She has been lost to follow up for over 3 years. She had initially lost 108 pounds and had multiple body contouring procedures. In three years, she has regained 106 pounds from prior visit. She is on neurontin. She has numbing and tingling of the legs and feet. She is concerned of stretching of her sleeve. She reports emotional eating. She presents in consultation for regain weight. Her highest weight for her 5 feet frame was 273 pound. [place] body weight is 140 pounds. Today she comes in weighing 271 pounds from 165 pounds, BMI 28.8. She has gained 106 pounds in 3 years. Total lifetime weight loss is reduced from 106 pounds to 2 pounds. Percent excess weight loss is 1 %. Body mass index reduced from 47.7 down to 47.4 PAST MEDICAL HISTORY: 1. Osteoarthritis of the bilateral knees 2. Osteoarthritis of the bilateral hips 3. Osteoarthritis of the lower back 4. Seasonal allergies. 5. Depression 6. Obstructive sleep apnea 7. Metabolic syndrome 8. Morbid obesity due to excess calories, BMI 47.7 initial PAST SURGICAL HISTORY: 1. . 2. Cholecystectomy. 3. Tubal ligation. 4. Foot surgery. 5. Knee surgery. 6. Nasal surgery. 7. Dental surgery. 8. Upper endoscopy. 9. Sleeve gastrectomy. 10. Thigh plasty 11. Panniculectomy MEDICATIONS: Home Medications Medication Instructions Recorded Confirmed Multivitamins, Thera [Multivitamin 1 tab PO DAILY 07/15/17 01/07/21 (formulary)] Vitamin A 2,400 units PO DAILY 07/15/17 01/07/21 Gabapentin [Neurontin] 300 mg PO TID 06/02/18 01/07/21 Cetirizine HCl [Zyrtec] 10 mg PO DAILY 12/19/20 01/07/21 Cyclobenzaprine [Flexeril] 5 mg PO HS PRN 12/19/20 01/07/21 Ergocalciferol [Vitamin D2 (1250 1,250 mcg PO SUWE 12/19/20 01/07/21 Mcg = 39916 Iu)] Iron 25 mg PO DAILY 12/19/20 01/07/21 Zinc 50 mg PO DAILY 12/19/20 01/07/21 traMADol HCl [Ultram] 50 mg PO HS PRN 12/19/20 01/07/21 DULoxetine HCL [Cymbalta] 60 mg PO BID 01/04/21 01/07/21 ALLERGIES: Denies. SOCIAL HISTORY: Lifelong nontobacco user. No heavy alcohol use. FAMILY HISTORY: Pertinent for morbid obesity. REVIEW OF SYSTEMS: CONSTITUTIONAL: Her highest weight for her 5 feet 3-10/27 frame was 273 pound. [place] body weight is 140 pounds. Today she comes in weighing 271 pounds from 165 pounds (BMI 28.8), now with 106 pound weight gain. She has lost 7 pounds. Body mass index reduced from 47.7 to 47.4. GASTROINTESTINAL: Resolved gastroesophageal reflux disease. Constipation resolved. RESPIRATORY: Resolved obstructive sleep apnea. Denies dyspnea on exertion. MUSCULOSKELETAL: Has osteoarthritis of the lower back including hips and knees. HEENT: Wears glasses. No reports of dysphagia. No reports of troubles with hearing. ENDOCRINE: No reports of active diabetes for hypothyroidism. CARDIOVASCULAR: No reports of recent chest pain or heart attack. PSYCH: History of depression. No recent psychosis. HEMATOLOGIC: No reports of easy bruising or bleeding. No reports of DVTs or pulmonary embolism. NEURO: No reports of strokes or seizure disorders. SKIN: History of panniculitis. No skin cancer. PHYSICAL EXAM: VITAL SIGNS: 5 foot 3-2, 271 pounds. Body mass index of 47.4 Vital Signs Temp 97.8 F 02/24/21 16:27 Pulse 97 12/19/20 16:27 Resp 16 12/19/20 16:27 BP 149/90 12/19/20 16:27 Pulse Ox CARDIOVASCULAR: Regular rate, Regular rhythm. 2 + radial pulse. GENERAL: Well-developed female in no acute distress. HEENT: No scleral icterus. Extraocular movements grossly intact. Moist buccal mucosa. Head is atraumatic, normocephalic. NECK: Neck is supple without lymphadenopathy. No jugular venous distention. CHEST: Nonlabored respiratons. Equal bilateral excursions. MUSCULOSKELETAL: No clubbing, cyanosis or edema. NEURO: Cranial nerves II through XII grossly intact. No focal or lateralizing signs. PSYCH: Appropriate affect. Alert and oriented to person, place and time. SKIN: Good skin turgor. Well perfused. ASSESSMENT: 1. Status post sleeve gastrectomy. 2. Body mass index reduced from 47.7 down to 47.4 3. Morbid obesity due to excess calories, resolved. 5. Osteoarthritis of lower back secondary to morbid obesity 6. Osteoarthritis of bilateral knees moderate to severe secondary to morbid obesity 7. 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 Depression without psychosis 9. Hypertensive heart disease without cardiomyopathy 10. Obstructive sleep apnea 11. Metabolic syndrome 12. Weight gain following bariatric procedure PLAN: 1. She has gained over 100 pounds from her prior visit. Recommend bariatric lab s. 2. She is on neurontin which can contribute to weight gain. 3. Recommend upper endoscopy for her sleeve. 4. Recommend esophagram for abnormalities of her sleeve. Past Medical History Past Medical History: Fibromyalgia, Hypertension, Skin Disorder, Sleep Apnea/CPAP/BIPAP Additional Past Medical History / Comment(s): ECZEMA, no Rx for BP, not using CPAP currently, History of Any Multi-Drug Resistant Organisms: None Reported Past Surgical History: Section, Cholecystectomy, Orthopedic Surgery, Tubal Ligation, Uterine Ablation Additional Past Surgical History / Comment(s): RT Foot NEUROMA. LT Knee arthroscopy. SINUS SURGERY/ DEVIATED SEPTUM. panniculectomy skin removal from bilateral legs ; right foot surgery 2020 - plantar facistis; Past Anesthesia/Blood Transfusion Reactions: Postoperative Nausea & Vomiting (PONV) Past Psychological History: No Psychological Hx Reported Smoking Status: Never smoker Past Alcohol Use History: None Reported Past Drug Use History: None Reported - Past Family History Mother Family Medical History: No Reported History Surgical - Exam Vital Signs Temp Pulse Resp BP 97.8 F 97 16 149/90 12/19/20 16:27 12/19/20 16:27 12/19/20 16:27 12/19/20 16:27 Bariatric Checklist Checklist: Plan: Checklist: EGD: 1. Hiatal hernia: 2. H. Pylori: HgbA1c: Vitamin D: Smoking: Never smoker Primary care physician referral: Charis Carlos Psychiatry clearance: Cardiology clearance: Sleep study: Diet journal: VTE risk score: VTE risk level: Rehab needs at discharge:
== END | disposition home or self-care (01) ==
LOC: BARWHC3 15:48
PROVIDERS: ATTEND Surgery Plastic and Reconstructive Surgery
DX: E88.81 Metabolic syndrome and other insulin resistance (principal); E66.01 Morbid (severe) obesity due to excess calories; M47.816 Spondylosis without myelopathy or radiculopathy, lumbar region; M17.0 Bilateral primary osteoarthritis of knee; M16.0 Bilateral primary osteoarthritis of hip; F32.9 Major depressive disorder, single episode, unspecified; I11.9 Hypertensive heart disease without heart failure; G47.33 Obstructive sleep apnea (adult) (pediatric); Z68.42 Body mass index [BMI] 45.0-49.9, adult; Z98.84 Bariatric surgery status; Z79.899 Other long term (current) drug therapy
CPT/HCPCS: 99211

== ENCOUNTER 2021-01-07 06:47 | Day surgery (SDC) | payer BC ==
[2021-01-04 08:40] VITALS: BMI 47.8
[~2021-01-07 06:47] MED LIST: LACTATED RINGERS 1,000 ML IV SCH
[2021-01-07 07:26] VITALS: TEMP 97.6
[2021-01-07] MEDS ORDERED: LIDOCAINE 1% (10MG/ML) FOR IV START INTRADERMA ONE (07:28)
[2021-01-07] MEDS ORDERED: LIDOCAINE 1% INJ 10MG/ML (20 ML MDV) ONE (07:34)
[2021-01-07] MEDS ORDERED: PROPOFOL 10 MG/ML 20 ML VIAL IV ONE (07:34)
--- NOTE | 2021-01-07 07:37 | P.GSHP ---
History of Present Illness H&P Date: 01/07/21 CHIEF COMPLAINT: GERD HISTORY OF PRESENT ILLNESS: The patient is a 45-year-old female who presents reports gastroesophageal reflux disease. Upper endoscopy was offered for further evaluation and management. PAST MEDICAL HISTORY: Please see list. PAST SURGICAL HISTORY: Please see list. MEDICATIONS: Please see list. ALLERGIES: Please see list. SOCIAL HISTORY: No illicit drug use FAMILY HISTORY: No reports of Crohn disease or ulcerative colitis. REVIEW OF ORGAN SYSTEMS: CONSTITUTIONAL: No reports of fevers or chills. GI: Denies any blood in stools or constipation. PHYSICAL EXAM: VITAL SIGNS: Stable GENERAL: Well-developed and pleasant in no acute distress. HEENT: No scleral icterus. Extraocular movements grossly intact. Moist buccal mucosa. NECK: Supple without lymphadenopathy. CHEST: Unlabored respirations. Equal bilateral excursions. CARDIOVASCULAR: Regular rate and rhythm. Distal 2+ pulses. ABDOMEN: Soft, nondistended. MUSCULOSKELETAL: No clubbing, cyanosis, or edema. ASSESSMENT: 1. Gastroesophageal reflux disease PLAN: 1. Recommend proceeding with an upper endoscopy Past Medical History Past Medical History: Fibromyalgia, GERD/Reflux, Hypertension, Osteoarthritis (OA), Skin Disorder Additional Past Medical History / Comment(s): ECZEMA, no Rx for BP, constipation or diarrhea, was told IBS yrs ago, History of Any Multi-Drug Resistant Organisms: None Reported Past Surgical History: Section, Cholecystectomy, Orthopedic Surgery, Tubal Ligation, Uterine Ablation Additional Past Surgical History / Comment(s): neuroma removed from rt foot. LT Knee arthroscopy. SINUS SURGERY/ DEVIATED SEPTUM. panniculectomy, skin removal from bilateral legs, right foot plantar faciitis Past Anesthesia/Blood Transfusion Reactions: Motion Sickness, Postoperative Nausea & Vomiting (PONV) Smoking Status: Never smoker - Past Family History Mother Family Medical History: No Reported History Medications and Allergies Home Medications Medication Instructions Recorded Confirmed Type Multivitamins, Thera [Multivitamin 1 tab PO DAILY 07/15/17 01/07/21 History (formulary)] Vitamin A 2,400 units PO DAILY 07/15/17 01/07/21 History Gabapentin [Neurontin] 300 mg PO TID 06/02/18 01/07/21 History Cetirizine HCl [Zyrtec] 10 mg PO DAILY 12/19/20 01/07/21 History Cyclobenzaprine [Flexeril] 5 mg PO HS PRN 12/19/20 01/07/21 History Ergocalciferol [Vitamin D2 (1250 1,250 mcg PO SUWE 12/19/20 01/07/21 History Mcg = 32729 Iu)] Iron 25 mg PO DAILY 12/19/20 01/07/21 History Zinc 50 mg PO DAILY 12/19/20 01/07/21 History traMADol HCl [Ultram] 50 mg PO HS PRN 12/19/20 01/07/21 History DULoxetine HCL [Cymbalta] 60 mg PO BID 01/04/21 01/07/21 History Nystatin 100,000 Unit/gm Powd 1 applic TOPICAL BID PRN 01/04/21 01/07/21 History [Mycostatin Powder] Allergies Allergy/AdvReac Type Severity Reaction Status Date / Time No Known Allergies Allergy Verified 01/07/21 07:17 Surgical - Exam Vital Signs Temp Pulse Resp BP Pulse Ox 97.6 F 84 16 144/70 99 01/07/21 07:24 01/07/21 07:24 01/07/21 07:24 01/07/21 07:24 01/07/21 07:24
--- NOTE | 2021-01-07 07:52 | P.PCN ---
Date of Procedure: 01/07/21 Description of Procedure: PREOPERATIVE DIAGNOSIS: Status post sleeve gastrectomy. Gastroesophageal reflux disease. POSTOPERATIVE DIAGNOSIS: Status post sleeve gastrectomy. Gastroesophageal reflux disease. Chronic superficial gastritis. OPERATION: Esophagogastroduodenoscopy with cold forceps biopsies along the antrum. SURGEON: Luz Vivar MD ANESTHESIA: MAC. INDICATIONS: The patient is a 45-year-old female who presents with a history of sleeve gastrectomy with abdominal pain. She is over 5 years out from her bariatric procedure. Benefits and risks of the procedure were described. Informed consent was obtained. DESCRIPTION: The patient was brought into the endoscopy suite and laid in the left lateral decubitus position. An Olympus gastroscope was passed along the posterior oropharynx down to the distal esophagus where the squamocolumnar junction was at 37 centimeters from the incisors remarkable for chronic erosive esophagitis, LA grade A without ulceration. The sleeve reservoir was large allowing easy retroflexion of the scope to view the lower esophageal valve. Chronic gastr itis albeit mild was found along the antrum with cold biopsies obtained. The first through third portion of the duodenum was examined and unremarkable. The scope again had easily retroflexed along the antrum. The stomach was desufflated. The patient tolerated the procedure well. FINDINGS: No acute ulceration found along her sleeve. No corkscrewing sleeve gastrectomy. Squamocolumnar junction at 37 cm from the incisors. Diaphragmatic hiatus at 37 cm. Large gastric reservoir with prior history of sleeve gastrectomy allowing easy retroflexion of the gastroscope to view the lower esophageal valve. LA grade A erosive esophagitis. No active duodenitis. Chronic gastritis. RECOMMENDATIONS: Upper endoscopy as needed. May benefit from revision of sleeve gastrectomy Plan - Discharge Summary New Discharge Prescriptions: Continue Multivitamins, Thera [Multivitamin (formulary)] 1 tab PO DAILY Vitamin A 2,400 units PO DAILY Gabapentin [Neurontin] 300 mg PO TID traMADol HCl [Ultram] 50 mg PO HS PRN PRN Reason: Pain Cyclobenzaprine [Flexeril] 5 mg PO HS PRN PRN Reason: Muscle Spasm Cetirizine HCl [Zyrtec] 10 mg PO DAILY Zinc 50 mg PO DAILY Iron 25 mg PO DAILY Ergocalciferol [Vitamin D2 (1250 Mcg = 73494 Iu)] 1,250 mcg PO SUWE DULoxetine HCL [Cymbalta] 60 mg PO BID Discontinued Nystatin 100,000 Unit/gm Powd [Mycostatin Powder] 1 applic TOPICAL BID PRN PRN Reason: Rash Discharge Medication List Multivitamins, Thera [Multivitamin (formulary)] 1 tab PO DAILY 07/15/17 [History] Vitamin A 2,400 units PO DAILY 07/15/17 [History] Gabapentin [Neurontin] 300 mg PO TID 06/02/18 [History] Cetirizine HCl [Zyrtec] 10 mg PO DAILY 12/19/20 [History] Cyclobenzaprine [Flexeril] 5 mg PO HS PRN 12/19/20 [History] Ergocalciferol [Vitamin D2 (1250 Mcg = 01629 Iu)] 1,250 mcg PO SUWE 12/19/20 [History] Iron 25 mg PO DAILY 12/19/20 [History] Zinc 50 mg PO DAILY 12/19/20 [History] traMADol HCl [Ultram] 50 mg PO HS PRN 12/19/20 [History] DULoxetine HCL [Cymbalta] 60 mg PO BID 01/04/21 [History] Follow up [facility] [place] [facility] [place] [facility] Patient Instructions/Handouts: *Sur[facility] - (Anesthesia) Endoscopy Discharge Instructions Discharge Disposition: HOME SELF-CARE
[2021-01-07 08:29] VITALS: BP 121/80; PULSE 76; RESP 20
== END 2021-01-07 08:47 | disposition home or self-care (01) ==
LOC: ORWHC2ENDO 06:47
PROVIDERS: ATTEND Surgery Plastic and Reconstructive Surgery
DX: K21.9 Gastro-esophageal reflux disease without esophagitis (principal); Z98.84 Bariatric surgery status; K22.10 Ulcer of esophagus without bleeding; K29.50 Unspecified chronic gastritis without bleeding; I10 Essential (primary) hypertension; M79.7 Fibromyalgia; M19.90 Unspecified osteoarthritis, unspecified site; L30.9 Dermatitis, unspecified; Z87.19 Personal history of other diseases of the digestive system; Z98.891 History of uterine scar from previous surgery; Z90.49 Acquired absence of other specified parts of digestive tract; Z98.51 Tubal ligation status; Z98.890 Other specified postprocedural states; Z79.891 Long term (current) use of opiate analgesic; Z79.899 Other long term (current) drug therapy
CPT/HCPCS: 81025; 88305; 43239; J2001; J2704

== ENCOUNTER → 2021-01-23 | Outpatient (CLI) | payer BC ==
[2021-01-23 16:51] VITALS: BP 145/89; PULSE 77; RESP 18; TEMP 98.2; BMI 47.0
--- NOTE | 2021-01-23 17:14 | P.PN ---
Subjective Progress Note Date: 01/23/21 She comes in with 100 pounds. Labs reviewed with trouble with TSH. Start synthroid. Diet plan. Follow-up in 1 month. Objective - Vital Signs Vital signs: Vital Signs Temp 98.2 F 01/23/21 16:47 Pulse 77 01/23/21 16:47 Resp 18 01/23/21 16:47 BP 145/89 01/23/21 16:47 Pulse Ox Intake & Output 01/22/21 01/23/21 01/23/21 18:59 06:59 18:59 Weight 122.47 kg
== END ==
LOC: BARWHC3 16:00
PROVIDERS: ATTEND Surgery Plastic and Reconstructive Surgery
DX: E66.01 Morbid (severe) obesity due to excess calories (principal); Z68.42 Body mass index [BMI] 45.0-49.9, adult; K21.9 Gastro-esophageal reflux disease without esophagitis; I10 Essential (primary) hypertension; Z46.51 Encounter for fitting and adjustment of gastric lap band
CPT/HCPCS: 99211

== ENCOUNTER → 2021-02-20 | Outpatient (CLI) | payer BC ==
[2021-02-20 17:21] VITALS: BP 155/90; PULSE 96; RESP 18; TEMP 98; BMI 46.5
--- NOTE | 2021-02-20 17:24 | P.PN ---
Subjective Progress Note Date: 02/20/21 DATE OF SERVICE: 02/20/2021 CHIEF COMPLAINT: Followup sleeve gastrectomy HISTORY OF PRESENT ILLNESS: Mary Jaimes is a 45-year-old female, status post sleeve gastrectomy 07/11/2016. She is 5 years out from her procedure. She comes in with moderate weight gain in 3 years, over 100 pounds. She is looking for management of her weight. She has lost 3 pounds. She reports recently having COVID. She has been started of thyroid supplement without palpitations. Her highest weight for her 5 feet frame was 273 pound. [place] body weight is 140 pounds. Today she comes in weighing 266 pounds from 269 pounds, 1 month ago. She has lost 3 pounds in 1 month. Total lifetime weight loss is 7 pounds. Percent excess weight loss is 5 %. Body mass index reduced from 47.7 down to 46.6 PHYSICAL EXAM: VITAL SIGNS: 5 foot 3, 266 pounds. Body mass index of 46.6 Vital Signs Temp 98 F 02/20/21 17:16 Pulse 96 02/20/21 17:16 Resp 18 02/20/21 17:16 BP 155/90 02/20/21 17:16 Pulse Ox CARDIOVASCULAR: Regular rate, Regular rhythm. 2 + radial pulse. GENERAL: Well-developed female in no acute distress. HEENT: No scleral icterus. Extraocular movements grossly intact. Moist buccal mucosa. Head is atraumatic, normocephalic. NECK: Neck is supple without lymphadenopathy. No jugular venous distention. CHEST: Nonlabored respiratons. Equal bilateral excursions. MUSCULOSKELETAL: No clubbing, cyanosis or edema. NEURO: Cranial nerves II through XII grossly intact. No focal or lateralizing signs. PSYCH: Appropriate affect. Alert and oriented to person, place and time. SKIN: Good skin turgor. Well perfused. LABS: TSH decreased from 4.080 to 1.960 ASSESSMENT: 1. Status post sleeve gastrectomy. 2. Body mass index reduced from 47.7 down to 46.6 3. Morbid obesity due to excess calories, resolved. 5. Osteoarthritis of lower back secondary to morbid obesity 6. Osteoarthritis of bilateral knees moderate to severe secondary to morbid obesity 7. 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 Depression without psychosis 9. Hypertensive heart disease without cardiomyopathy 10. Obstructive sleep apnea 11. Metabolic syndrome 12. Weight gain following bariatric procedure 13. Hypertriglyceridemia 14. Hypercholesterolemia 15. Hyperparathyroidism 16. Thyroid disorder PLAN: 1. Plan for increase TSH for goal less than 1.0 2. Synthroid increased to 50 mcg daily. Objective - Vital Signs Vital signs: Vital Signs Temp 98 F 02/20/21 17:16 Pulse 96 02/20/21 17:16 Resp 18 02/20/21 17:16 BP 155/90 02/20/21 17:16 Pulse Ox Intake & Output 02/19/21 02/20/21 02/20/21 18:59 06:59 18:59 Weight 121.109 kg
== END | disposition home or self-care (01) ==
LOC: BARWHC3 15:49
PROVIDERS: ATTEND Surgery Plastic and Reconstructive Surgery
DX: Z09 Encounter for follow-up examination after completed treatment for conditions other than malignant neoplasm (principal); E21.3 Hyperparathyroidism, unspecified; E78.00 Pure hypercholesterolemia, unspecified; E78.1 Pure hyperglyceridemia; G47.33 Obstructive sleep apnea (adult) (pediatric); I11.9 Hypertensive heart disease without heart failure; M16.0 Bilateral primary osteoarthritis of hip; M17.0 Bilateral primary osteoarthritis of knee; E88.81 Metabolic syndrome and other insulin resistance; F32.9 Major depressive disorder, single episode, unspecified; R63.5 Abnormal weight gain; Z98.84 Bariatric surgery status; M47.9 Spondylosis, unspecified
CPT/HCPCS: 36415; 84443; 99211

== ENCOUNTER → 2021-02-20 | Outpatient (CLI) | payer BC | DX: Z53.9 Procedure and treatment not carried out, unspecified reason (principal) ==

== ENCOUNTER → 2021-03-20 | Outpatient (CLI) | payer BC ==
[2021-03-20 16:28] VITALS: BP 164/102; PULSE 86; RESP 18; TEMP 98.5; BMI 46.7
--- NOTE | 2021-03-20 16:52 | P.PN ---
Subjective Progress Note Date: 03/20/21 DATE OF SERVICE: 03/20/2021 CHIEF COMPLAINT: Followup sleeve gastrectomy HISTORY OF PRESENT ILLNESS: Mary Jaimes is a 45-year-old female, status post sleeve gastrectomy 07/11/2016. She is 5 years out from her procedure. She comes in with almost complete weight re-gain of over 100+ pounds. She is trying to adjust her diet. Her highest weight for her 5 feet 3 frame was 273 pound. [place] body weight is 140 pounds. Today she comes in weighing 268 pounds from 266 pounds, 1 month ago. She has gained 1 pound in 1 month. Total lifetime weight loss is 5 pounds. Percent excess weight loss is 4 %. Body mass index reduced from 47.7 down to 46.8. PHYSICAL EXAM: VITAL SIGNS: 5 foot 3-2, 268 pounds. Body mass index of 46.8 Vital Signs Temp 98.5 F 03/20/21 16:19 Pulse 86 03/20/21 16:19 Resp 18 03/20/21 16:19 BP 164/102 03/20/21 16:19 Pulse Ox CARDIOVASCULAR: Regular rate, Regular rhythm. 2 + radial pulse. GENERAL: Well-developed female in no acute distress. HEENT: No scleral icterus. Extraocular movements grossly intact. Moist buccal mucosa. Head is atraumatic, normocephalic. NECK: Neck is supple without lymphadenopathy. No jugular venous distention. CHEST: Nonlabored respiratons. Equal bilateral excursions. MUSCULOSKELETAL: No clubbing, cyanosis or edema. NEURO: Cranial nerves II through XII grossly intact. No focal or lateralizing signs. PSYCH: Appropriate affect. Alert and oriented to person, place and time. SKIN: Good skin turgor. Well perfused. LABS: TSH decreased from 4.080 to 1.960 ASSESSMENT: 1. Status post sleeve gastrectomy. 2. Body mass index reduced from 47.7 down to 46.8 3. Morbid obesity due to excess calories, resolved. 5. Osteoarthritis of lower back secondary to morbid obesity 6. Osteoarthritis of bilateral knees moderate to severe secondary to morbid obesity 7. 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 Depression without psychosis 9. Hypertensive heart disease without cardiomyopathy 10. Obstructive sleep apnea 11. Metabolic syndrome 12. Weight gain following bariatric procedure 13. Hypertriglyceridemia 14. Hypercholesterolemia 15. Hyperparathyroidism 16. Thyroid disorder PLAN: 1. Will increase synthroid to 100 mcg with goal 185 mcg. 3. Recommend repeat labs. Objective - Vital Signs Vital signs: Vital Signs Temp 98.5 F 03/20/21 16:19 Pulse 86 03/20/21 16:19 Resp 18 03/20/21 16:19 BP 164/102 03/20/21 16:19 Pulse Ox Intake & Output 03/19/21 03/20/21 03/20/21 18:59 06:59 18:59 Weight 121.653 kg
== END ==
LOC: BARWHC3 15:49
PROVIDERS: ATTEND Surgery Plastic and Reconstructive Surgery
DX: Z09 Encounter for follow-up examination after completed treatment for conditions other than malignant neoplasm (principal); R63.5 Abnormal weight gain; E21.3 Hyperparathyroidism, unspecified; E78.00 Pure hypercholesterolemia, unspecified; E78.1 Pure hyperglyceridemia; E88.81 Metabolic syndrome and other insulin resistance; F32.9 Major depressive disorder, single episode, unspecified; G47.33 Obstructive sleep apnea (adult) (pediatric); I11.9 Hypertensive heart disease without heart failure; M16.0 Bilateral primary osteoarthritis of hip; M17.0 Bilateral primary osteoarthritis of knee; M47.9 Spondylosis, unspecified; E07.9 Disorder of thyroid, unspecified; Z98.84 Bariatric surgery status
CPT/HCPCS: 99211

== ENCOUNTER → 2021-08-07 | Outpatient (CLI) | payer BC ==
[2021-08-07 14:25] VITALS: BP 167/97; PULSE 83; RESP 18; TEMP 98.2
--- NOTE | 2021-08-07 14:39 | P.PAINCN ---
History of Present Illness - Reason for Consult Consult date: 08/07/21 - History of Present Illness This is initial consultation visit for this 45 years old female with a chronic history of severe neck pain with radiation to the upper extremity started more than 6 months ago, he denies any initiating event and she reported that the intensity of the pain increased over time and is associated with numbness and tingling sensation and needs more prominent on the left side, patient done more than 6 weeks of physical therapy and she continued to have severe pain, is currently on Flexeril and Ultram and Neurontin and she continued to have pain, though patient complaining of severe low back pain with radiation to the buttock bilaterally, low back pain is constant and increased with any activity, he denies any fever or night sweats. She denies any change in the bowel movement or urination she denies any motor or sensory deficit Past Medical History Past Medical History: Fibromyalgia, GERD/Reflux, Hypertension, Osteoarthritis (OA), Skin Disorder Additional Past Medical History / Comment(s): ECZEMA, no Rx for BP, constipation or diarrhea, was told IBS yrs ago, History of Any Multi-Drug Resistant Organisms: None Reported Past Surgical History: Section, Cholecystectomy, Orthopedic Surgery, Tubal Ligation, Uterine Ablation Additional Past Surgical History / Comment(s): neuroma removed from rt foot. LT Knee arthroscopy. SINUS SURGERY/ DEVIATED SEPTUM. panniculectomy, skin removal from bilateral legs, right foot plantar faciitis Past Anesthesia/Blood Transfusion Reactions: Motion Sickness, Postoperative Nausea & Vomiting (PONV) Smoking Status: Never smoker - Past Family History Mother Family Medical History: No Reported History Medications and Allergies Home Medications Medication Instructions Recorded Confirmed Type Multivitamins, Thera [Multivitamin 1 tab PO DAILY 07/15/17 08/07/21 History (formulary)] Vitamin A (10,000 Jl=1378 Mcg) 2,400 units PO DAILY 07/15/17 08/07/21 History Gabapentin [Neurontin] 300 mg PO TID 06/02/18 08/07/21 History Cetirizine HCl [Zyrtec] 10 mg PO DAILY 12/19/20 08/07/21 History Cyclobenzaprine [Flexeril] 5 mg PO HS PRN 12/19/20 08/07/21 History Ergocalciferol [Vitamin D2 (1250 1,250 mcg PO SUWE 12/19/20 08/07/21 History Mcg = 58379 Iu)] Iron 25 mg PO DAILY 12/19/20 08/07/21 History Zinc 50 mg PO DAILY 12/19/20 08/07/21 History traMADol HCl [Ultram] 50 mg PO HS PRN 12/19/20 08/07/21 History DULoxetine HCL [Cymbalta] 60 mg PO BID 01/04/21 08/07/21 History Levothyroxine Sodium [Synthroid] 150 mcg PO DAILY #30 tablet 04/24/21 08/07/21 Rx Allergies Allergy/AdvReac Type Severity Reaction Status Date / Time No Known Allergies Allergy Verified 08/07/21 13:52 Physical Exam Vitals: Vital Signs Temp Pulse Resp BP 08/07/21 14:15 98.2 F 83 18 167/97 Physical Examinations : -Constitutiona : Cooperative , not in acute distress . -HEENT : nech : supple , no Lymphadenopathy , normal thyroid size . : eyes : no ptosis , no icterus, no photophobia . - neurologic : Cranial nerve II to XII intact , no focal neurological deffecit . -psychatric : alert , oriented X 3 , appropriate affect , intact judgment and insight . -Lymphatic : no Lymphadenopathy . - musculoskeltal : Cervical Spine motor stregnth in the deltoid and biceps, normal right side , normal Left side motor stregnth biceps and the wrist extensors normal right side ,normal left side . motor stregnth in the triceps muscle . normal Right side , normal Left side deep tendon reflexes normal at the biceps , normal at Brachioradialis , normal at triceps. cervical facet loading test: Positive Bilaterally Spurling test= positive Right , positive left. Neck distraction test= positive Right , positive left. Sheela sign= positive right, positive left . Lumber spine moter stegnth lower extremities ,thigh and legs 5/5 Right side , 5/5 Left side deep tendon reflexes : normal Knee Jerk , normal ankle Jerk lumber facet Loading Test = negative bilaterally Range of motion of the lumbar spine Flexion 30 degrees, extension 10 degrees strait leg raising test = negative bilaterally Fabere test= negative bilaterally. Sever tenderness over the Sacroiliac joint on the Right , and Left sides Gaenslen test= positive right ,and positive left . Seated flexion test= positive right ,and positive Left . Distraction test= positive bilaterally Sacroiliac compression test= positive bilaterally Results Comments: MRI of the cervical spine multilevel cervical degenerative disc disease more pr onounced at C5 6 and there is bilateral foraminal stenosis and there is moderate canal stenosis Assessment and Plan Plan: Assessment and plan=1-cervical spinal stenosis. 2-cervical degenerative disc disease. 3-bilateral sacroiliitis. Current benefit from cervical epidural steroid injection at C7-T1 under fluoroscopy guidance Time with Patient: Greater than 30 PQRS Measure Charge Sheet Measure #130: Documentation of Current Meds in Medical Chart: Patient's medications documented in chart Measure #226: Tobacco Use: Screen & Cessation Intervention: Pt not a tobacco user Measure #111: Pneumonia Vaccination: Pneumococcal vaccine NOT administered or previously given Measure #47: Advance Care Plan: Advance care planning discussed & documented, pt chose/unable to give Measure #412: Opioid Treatment Agreement: No documentation of signed opioid treatment agreement Measure #408: Opioid Therapy Follow-up Evaluation: Patient had NO f/u eval minimum every 3 months during opioid therapy Measure #317: Preventitive Care & Scrn High Bld Press & F/U: Pre-hypertensive or hypertensive BP documented, pt will f/u with PCP Measure #128: Body Mass Index (BMI) Screening & Follow-up: BMI documented ABOVE normal parameters - f/u documented Measure #131: Pain Assessment & Follow-up: Pain positive & plan documented, Follow-up scheduled Measure #431: Unhealthy Alcohol Use Preventative Care & Scrn: Patient not identified as an unhealthy alcohol user Mode of Arrival: Ambulatory - Pain Location Neck Non-Pharmacological Interventions: Chiropractic Treatment, Heat, Home Exercise, Ice, Inactivity Lower Back Non-Pharmacological Interventions: Chiropractic Treatment, Heat, Ice, Inactivity Pharmacological Interventions: PRN Medication PQRS Narrative: Smoking Status Never smoker Blood Pressure 167/97 Pain Intensity [Lower Back] 8 Pain Intensity [Neck] 8 Scale Used Numeric (1 - 10) Hx Alcohol Use (MH) No Home Medications: Ambulatory Orders Multivitamins, Thera [Multivitamin (formulary)] 1 tab PO DAILY 07/15/17 Vitamin A (10,000 Op=7783 Mcg) 2,400 units PO DAILY 07/15/17 Gabapentin [Neurontin] 300 mg PO TID 06/02/18 Cetirizine HCl [Zyrtec] 10 mg PO DAILY 12/19/20 Cyclobenzaprine [Flexeril] 5 mg PO HS PRN 12/19/20 Ergocalciferol [Vitamin D2 (1250 Mcg = 82477 Iu)] 1,250 mcg PO SUWE 12/19/20 Iron 25 mg PO DAILY 12/19/20 Zinc 50 mg PO DAILY 12/19/20 traMADol HCl [Ultram] 50 mg PO HS PRN 12/19/20 DULoxetine HCL [Cymbalta] 60 mg PO BID 01/04/21 Levothyroxine Sodium [Synthroid] 150 mcg PO DAILY #30 tablet 04/24/21
== END ==
LOC: PNWHC3 13:45
PROVIDERS: ATTEND Specialist
DX: M48.02 Spinal stenosis, cervical region (principal); M50.30 Other cervical disc degeneration, unspecified cervical region; M46.1 Sacroiliitis, not elsewhere classified; I10 Essential (primary) hypertension; M19.90 Unspecified osteoarthritis, unspecified site
CPT/HCPCS: 99211

== ENCOUNTER 2021-09-10 06:37 | Day surgery (SDC) | payer BC ==
[2021-09-09 12:03] VITALS: BMI 46.2
[2021-09-10 07:09] VITALS: RESP 16; TEMP 97.4
[2021-09-10] MEDS ORDERED: IOPAMIDOL M200 10 ML VIAL ONE (07:28)
[2021-09-10] MEDS ORDERED: MIDAZOLAM 2 MG/2 ML VIAL ONE (07:28)
[2021-09-10] MEDS ORDERED: DEXAMETHASONE SOD PHOSPHATE 10 MG/ML 1 ML VIAL ONE (07:28)
[2021-09-10] MEDS ORDERED: fentaNYL (PF) 50 MCG/ML 2 ML AMP ONE (07:28)
--- NOTE | 2021-09-10 07:42 | P.PCN ---
Date of Procedure: 09/10/21 Procedure(s) Performed: . PROCEDURE 1. Cervical epidural steroid injection under fluoroscopic guidance, C7-T1 (fluoroscopy images available in the radiology department ) 2. Cervical epidurogram. PREOPERATIVE DIAGNOSIS: 1- Cervical Degenerative Disc Diseases 2- Cervical spinal stenosis. POSTOPERATIVE DIAGNOSIS: : 1- Cervical Degenerative Disc Diseases , 2- Cervical spinal stenosis ANESTHESIA: Local anesthesia with lidocaine 1 % , and moderate sedation, with Versed 2 mg and Fentanyl 50 mcg. EBL 0 PROCEDURE INDICATION: The patient with neck pain and radiculitis unresponsive to conservative treatment consents for procedure. PROCEDURE DESCRIPTION / TECHNIQUE: The patient was seen and identified in the preoperative area. Risks, benefits, complications, including but not limited to infections ,bleeding , allergic reactions to the medications ,and not complete pain releife, and alternatives were discussed with the patient, the patient agreed to proceed with the procedure and signed the consent. Patient was taken to the OR and time out was completed. The patient was placed in the prone position on the procedure table. A pillow was placed under the patients chest to increase the cervical interlaminar space. The cervical area was prepped and draped in the usual sterile fashion. Vital signs were closely monitored during the procedure. Conscious sedation was used during the procedure to decrease patients anxiety. Using anterior-posterior fluoroscopy, the C7-T1 interlaminar space was identified and the skin over this site was marked and then infiltrated with 1% lidocaine subcutaneously. Subsequently, a 20-gauge 3-1/2-inch Tuohy epidural needle was inserted and advanced toward the epidural space by means of the ``hanging-drop technique and guided by AP and lateral fluoroscopy. The correct needle position in the epidural space was verified with the injection of 2 mL of the water soluble contrast dye Isovue-200 and observing an excellent epidurogram with the epidural spread of the dye, after negative aspiration for blood and CSF and in the absence of paresthesias. then,mixture containing 20 mg Dexamethasone , and 2 ml of preservative-free normal saline injected and a washout of epidurogram was seen. Needle was withdrawn intact, skin was cleansed, and bandages were applied. Complications= none. Disposition= patient was placed in supine position and transferred to the recovery room area in stable condition and there was no evidence of upper or lower extremity motor or sensory deficit after the procedure patient was discharged from recovery room after discharge criteria met and home discharge instructions was given by the staff and patient will follow with the pain clinic in 2-4 weeks
[2021-09-10] MEDS ORDERED: IV FLUID CONTINUATION 900 ML IV ONE (07:49)
[2021-09-10 08:12] VITALS: BP 141/76; PULSE 74
--- NOTE | 2021-09-10 11:29 | FL ---
Fluoroscopy HISTORY: Pain 2 seconds fluoroscopy time supplied to the referring clinician. 1 intraoperative C-arm images docume nt the procedure. See dictated report from anesthesia.
== END 2021-09-10 08:20 | disposition home or self-care (01) ==
LOC: ORPAIN 06:37
PROVIDERS: ATTEND Specialist
DX: M48.02 Spinal stenosis, cervical region (principal); F41.9 Anxiety disorder, unspecified
CPT/HCPCS: 62321; 81025; J2250; J1100; J3010; Q9966; 99152

== ENCOUNTER → 2021-10-07 | Outpatient (CLI) | payer BC ==
[2021-10-07 09:42] VITALS: BP 139/87; PULSE 101; RESP 18; TEMP 98.3
--- NOTE | 2021-10-07 14:54 | P.PAINPG ---
Subjective Progress Note Date: 10/07/21 Principal diagnosis: Neck pain Mrs. Jaiems is a 45-year-old pleasant female came to the [facility] pain clinic for post procedure evaluation. Patient has ongoing pain for many years. Patient describes pain is aching, throbbing, constant type of pain. Pain is not radiating to her upper extremities. Patient rated pain levels are 7-8 out of 10 in severity. With the help of medications pain levels are 5 out of 10 in severity. Activities making pain worse. Medications, resting, interventional procedures, exercises helping in relieving patient's pain. Patient is actively working. Patient pain some days better than others. Overall activities decreased secondary to pain. Because of the pain sometimes patient is feeling lack of sleep, interest, and energy. Denied any side effects with the medications. Denied any bowel or bladder problems at this time. Patient is not using any walking aids at this time . Patient denies any suicidal or homicidal ideations intent or plan. Patient denies any auditory or visual hallucinations. Patient denied any red flag symptoms related to pain. Objective - Vital Signs Vital signs: Vital Signs Temp 98.3 F 10/07/21 09:24 Pulse 101 H 10/07/21 09:24 Resp 18 10/07/21 09:24 BP 139/87 10/07/21 09:24 Pulse Ox 96 10/07/21 09:24 - Exam General: Well-developed, well-nourished, no acute distress HEENT: Normocephalic, and atraumatic Neck: Supple, no neck swelling Psychiatric: Appropriate mood, and affect [employer]: No focal neurological deficits Musculoskeletal: Upper extremity: Normal strength, and range of motion. Sensation grossly intact Lower extremity: Normal strength, and normal range of motion Cervical spine: Paravertebral tenderness: Positive Cervical spine facet jayce: Positive Cervical spine Spurling test: Negative Multiple trigger point positive for cervical, and upper thoracic area - Constitutional Constitutional Comment(s): 13 point review of symptoms negative except as mentioned in the history of present illness Assessment and Plan Assessment: Cervical spondylosis without myelopathy Myofascial pain syndrome, and chronic pain syndrome Plan: #1 Diagnoses, prognosis, and multiple treatment options including but not limited to physical therapy, interventional therapy, adjunct medication therapy, narcotic medication, and surgical options were discussed with the patient. And all questions were answered to the patient's satisfaction. #2 treatment plan agreement : Patient was thoroughly discussed regarding the treatment options, alternatives, and importance of exercises as tolerated. Patient clearly understood. #3 Patient was counseled on importance of regular exercise. Including chris chi, aerobic exercises as tolerated. Which helps for chronic pain, and overall well- being. Patient also counseled regarding importance of weight control rolling chronic pain, and overall other health issues. By altering diet habits, minimizing sugar intake, and processed foods helps in minimizing Inflammation. Also discussed with the patient regarding intermittent fasting. #4 investigations: MAPS- reviewed , urine drug test-not done #5 diagnostic tests: None #6 consultation : None # 7 interventional procedures: C6-C7 or C7-T1 cervical epidural steroid injection, and cervical, and upper thoracic trigger point injections. Procedure, complications, alternatives discussed with the patient. #8 medications None from the pain clinic # 9 TENS unit's, and percussion massage device #10 disposition: scheduled to follow up with pain clinic in 4 weeks duration. Time with Patient: Less than 30 PQRS Measure Charge Sheet Measure #130: Documentation of Current Meds in Medical Chart: Patient's medications documented in chart Measure #226: Tobacco Use: Screen & Cessation Intervention: Pt not a tobacco user Measure #111: Pneumonia Vaccination: Pneumococcal vaccine NOT administered or previously given Measure #47: Advance Care Plan: Advance care planning discussed & documented, pt chose/unable to give Measure #412: Opioid Treatment Agreement: No documentation of signed opioid treatment agreement Measure #408: Opioid Therapy Follow-up Evaluation: Patient had NO f/u eval minimum every 3 months during opioid therapy Measure #317: Preventitive Care & Scrn High Bld Press & F/U: Normal blood pressure, f/u not required Measure #128: Body Mass Index (BMI) Screening & Follow-up: BMI documented ABOVE normal parameters - f/u documented Measure #131: Pain Assessment & Follow-up: Pain positive & plan documented Measure #431: Unhealthy Alcohol Use Preventative Care & Scrn: Patient not identified as an unhealthy alcohol user Mode of Arrival: Ambulatory - Pain Location Left Leg Non-Pharmacological Interventions: Heat, Position/Reposition Pharmacological Interventions: PRN Medication Lower Neck Non-Pharmacological Interventions: Chiropractic Treatment, Heat, Ice, Inactivity, Massage, Physical Therapy, Position/Reposition, Stretching Pharmacological Interventions: Epidural, Medication, PRN Medication PQRS Narrative: Smoking Status Never smoker Blood Pressure 139/87 Pain Intensity [Lower Neck] 10 Pain Intensity [Left Leg] 10 Pain Intensity [Left Arm] 10 Scale Used Numeric (1 - 10) Hx Alcohol Use (MH) No Home Medications: Ambulatory Orders Multivitamins, Thera [Multivitamin (formulary)] 1 tab PO DAILY 07/15/17 Vitamin A (10,000 Cw=1083 Mcg) 2,400 units PO DAILY 07/15/17 Gabapentin [Neurontin] 300 mg PO TID 06/02/18 Cetirizine HCl [Zyrtec] 10 mg PO DAILY 12/19/20 Cyclobenzaprine [Flexeril] 5 mg PO HS PRN 12/19/20 Ergocalciferol [Vitamin D2 (1250 Mcg = 76118 Iu)] 1,250 mcg PO SUWE 12/19/20 Iron 25 mg PO DAILY 12/19/20 Zinc 50 mg PO DAILY 12/19/20 traMADol HCl [Ultram] 50 mg PO HS PRN 12/19/20 DULoxetine HCL [Cymbalta] 60 mg PO BID 01/04/21 Levothyroxine Sodium [Synthroid] 150 mcg PO DAILY #30 tablet 04/24/21 Controlled Substance Measures - Controlled Substance Measures Is patient prescribed a controlled substance at discharge?: No
== END ==
LOC: PNWHC3 08:56
DX: M47.812 Spondylosis without myelopathy or radiculopathy, cervical region (principal); M79.18 Myalgia, other site; G89.4 Chronic pain syndrome
CPT/HCPCS: 99211

== ENCOUNTER 2021-11-05 11:55 | Day surgery (SDC) | payer BC ==
[2021-11-01 12:44] VITALS: BMI 47.1
[2021-11-05] MEDS ORDERED: LACTATED RINGERS 1,000 ML IV SCH (12:15)
[2021-11-05 12:26] VITALS: TEMP 98
[2021-11-05] MEDS: LACTATED RINGERS 1,000 ML IV SCH ×2 (12:32→12:38)
[2021-11-05] MEDS ORDERED: DEXAMETHASONE SOD PHOSPHATE 4 MG/ML 1 ML VIAL ONE (12:39)
[2021-11-05] MEDS ORDERED: fentaNYL (PF) 50 MCG/ML 2 ML AMP ONE (12:39)
[2021-11-05] MEDS ORDERED: MIDAZOLAM 2 MG/2 ML VIAL ONE (12:39)
[2021-11-05] MEDS ORDERED: IOPAMIDOL M200 10 ML VIAL ONE (12:39)
[2021-11-05] MEDS ORDERED: ROPIVACAINE 5MG/ML 20ML VIAL ONE (12:39)
[2021-11-05] MEDS ORDERED: TRIAMCINOLONE ACETONIDE 40 MG/ML 1 ML VIAL ONE (12:39)
--- NOTE | 2021-11-05 13:05 | FL ---
EXAMINATION TYPE: FL guided pain mgmt statistic DATE OF EXAM: 11/05/2021 HISTORY: Fluoroscopy time 5 seconds of fluoroscopy provided. IMPRESSION: 1. Fluoroscopy time.
--- NOTE | 2021-11-05 13:07 | P.PCN ---
Date of Procedure: 11/05/21 Description of Procedure: Pre- and Post-operative Diagnosis: Cervical radiculopathy Myofascial pain syndrome Procedure: Left-sided C7-T1 Inter-Laminar Cervical Epidural Steroid Injection under biplanar fluoroscopy #2 Bilateral cervical, upper thoracic trigger point injections 7 Surgeon: Rina Jones Anesthesia: Local: 1% Lidocaine, IV sedation : Versed, and fentanyl. Complications: None. Estimated blood loss: None Specimens removed: None Fluoroscopic image: saved to electronic medical records. Indications for Procedure: The patient has been suffering from neck pain and mary n radiating to the upper extremity . Patient had good pain relief with the previous epidural steroid injection more than 50% relief for 2-3 days duration , which helped pain radiating to upper extremities. Inadequate pain control with pharmacologic regimen. Repeat inter-laminar approach cervical epidural steroid injection was scheduled for the patient. Procedure and Findings: The patient was seen and examined in the holding area. The written informed consent was obtained after explaining the risks, benefits, alternatives of the procedure to the patient. The patient was brought to the procedure room and was placed in the prone position on the operating table. A pillow was placed under the upper chest. Standard anesthesia monitoring was done through out the procedure. Timeout was completed. The skin preparation was done with ChloraPrep 1 and draping was done in usual sterile fashion. Sterile technique was observed throughout the procedure. Under fluoroscopic guidance, the C7-T1 inter-laminar space was identified. 3 ml of 1% Lidocaine was injected with a 25 gauge needle to achieve adequate local anesthesia of the skin and subcutaneous tissue. A 20 gauge, 3.5 inch Tuohy type epidural needle was placed and gradually advanced up to the epidural space using loss of resistance technique and fluoroscopic guidance. Lateral, oblique fluoroscopic views confirm the needle position. No paresthesia was noted. A negative aspiration was confirmed and then 1 ml of Isovue-200 was injected. A good dye spread was seen in the epidural space and it was negative for any intrathecal, intraneural or intravascular spread. A total of 6 ml solution containing 10 mg Dexamethasone, and 5 ml preservative-free Normal Saline was injected slowly with intermittent aspiration. The needle was removed intact, area was cleaned and bandage was applied. Pre and postop diagnosis: Myofascial pain syndrome Procedure: Trigger point injections X 7 Muscle group X bilateral cervical paraspinals, bilateral trapezius Surgeon: Rina Whitt Anesthesia: None Complications: None Estimated blood loss: None Specimen removed: None Procedure indications: Patient had a history of myofascial pain syndrome. Patient tried conservative therapy. Came here for intervention procedure for better pain relief. Procedure description: Patient was seen and identified in the holding area risk benefits competitions alternative discussed with the patient. Patient agreed to proceed for the procedure signed the consent. Patient taken to the procedure area. Timeout was completed. A total number of 7 - trigger point area was marked with a sterile marker. After ChloraPrep used to clean the area. Critical pause was taken. Using 25-gauge 1-1/[address]. Needle entered in each market site 2 mL of block solution injected at each level. The block solution containing 14ml of 0.5% preservative-free ropivacaine with Kenlog 40 MG. Needle removed intact skin cleaned and Band-Aid applied. Patient tolerated the procedure well. Disposition : The patient tolerated the procedure very well. The patient was transferred to the recovery room and remained stable until discharged home. The patient was given detailed discharge instructions for bleeding, infection, increased pain at the injection site, and was advised to seek immediate medical attention should significant side effects develop. The patient will be followed up with our Pain Clinic within 4 weeks for follow-up visit.
[2021-11-05] MEDS ORDERED: IV FLUID CONTINUATION 1,000 ML IV ONE (13:08)
[2021-11-05 13:13] VITALS: RESP 16
[2021-11-05 13:27] VITALS: BP 152/81; PULSE 83
== END 2021-11-05 13:40 | disposition home or self-care (01) ==
LOC: ORPAIN 11:55
DX: M54.2 Cervicalgia (principal); M54.12 Radiculopathy, cervical region; M79.18 Myalgia, other site; I10 Essential (primary) hypertension; M19.90 Unspecified osteoarthritis, unspecified site; Z98.891 History of uterine scar from previous surgery; Z90.49 Acquired absence of other specified parts of digestive tract; Z98.51 Tubal ligation status; Z98.890 Other specified postprocedural states
CPT/HCPCS: 81025; 20553; 62321; J2250; J1100; J3301; J3010; Q9966; J2795; 99152

== ENCOUNTER → 2021-12-19 | Outpatient (CLI) | payer BC ==
[2021-12-19 08:22] VITALS: BP 160/99; PULSE 99; RESP 18; TEMP 98.1
--- NOTE | 2021-12-19 08:49 | P.PN ---
Subjective Progress Note Date: 12/19/21 Principal diagnosis: A 46 yr old female with a history of severe and chronic neck pain secondary to cervical degenerative disc diseases, disc bulges, neural foraminal stenoses with facet arthropathy presents today for evaluation status post REYES C7-T1 #2 with TPIs. Patient states she obtain 70% pain relief for 4 days, and then the pain escalated within 1 week to is full capacity. Pain level is currently at 10 out of 10, dull, achy, pressure type pain in the middle and lower aspect of the cervical spine with radiating numbness to the bilateral upper extremities and numbness in the left fingers. Pain is provoked by standing for 30 minutes, lifting and typing. Pain is alleviated with medications, topicals, injections, heat, chiropractic treatments every 2 weeks, massage monthly, repositioning and rest. 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 Patient denies any motor or sensory deficits. Patient denies any fever or night sweats, denies any change in the bowel movements or urination. Physical Examination: -Constitutional: Cooperative. Not in acute distress . -HEENT: Neck is supple. No lymphadenopathy. No thyromegaly. Normal thyroid size. Eyes: No ptosis , no icterus, no photophobia. ENT: No auditory deficits. Normal oropharynx. No Thrush. - Respiratory: Chest clear to auscultations bilaterally. No wheezing. No rhonchi. - Cardiovascular: Regular rate and rhythm. S1 / S2 , no S3 , no S4. - Gastrointestinal: Abdomen soft no tenderness. Bowel sounds positive in all four quadrants. No organomegaly. - Genitourinary: Deferred. - Neurologic: Cranial nerve II to XII intact. No focal neurological deficits. - Psychatric: Alert & oriented x 3. Matching mood & appropriate affect. Judgment and insight intact. - Lymphatic: No Lymphadenopathy. - Musculoskeletal: Cervical spine: Muscle bulk/ tone/ strength in the bilateral upper extremities normal. Vertebral body tenderness to palpation over C5, C6, C7 Spurling test positive Distraction test positive Facet loading test cervical area positive. Lumbar spine: Motor bulk/ tone/ strength lower extremities , thigh and legs : 5/5 Deep tendon reflexes : Normal Knee Jerk. Normal Ankle Jerk . Vertebral body tenderness to palpation over Lumbar Facet Loading Test positive Straight Leg Raise: positive at 30 degrees right side/ left side Gaenslen's Test positive Sacral spine : Severe tenderness over the Sacroiliac joint: right side / left side Range of motion: Flexion of the lumbar spine <60 degrees Range of motion: Extension of the lumbar spine <20 degrees Gaenslen's Test positive Ike test: positive right side / left side Assessment and plan: Chronic low back pain secondary to lumbar degenerative disc disease , lumbar spondylosis with facet arthropathy without myelopathy Recommendation of REYES C5-C6. This will be the third REYES within a six- month period. Discussed use of a cervical traction device with patient. Patient had a good experience with physical therapy, though she had a positive experience with manual traction in the exam room today. She is interested in obtaining a cervical traction device for home use. Use of devices discussed. All patient questions answered MAPS reviewed and it was appropriate. I have spent 31 minutes on patient care today. Dr Dallas was available by phone for the evaluation of this patient. The time was used to review the medical records including relevant urine studies and Prescription history (MAPs), review of the available imaging, evaluation and examination of the patient, coordination of care with the medical staff and if applicable referring physicians, as well as creation of the medical record Objective - Vital Signs Vital signs: Vital Signs Temp 98.1 F 12/19/21 08:10 Pulse 99 12/19/21 08:10 Resp 18 12/19/21 08:10 BP 160/99 12/19/21 08:10 Pulse Ox 100 12/19/21 08:10 PQRS Measure Charge Sheet Mode of Arrival: Ambulatory - Pain Location Lower Neck Non-Pharmacological Interventions: Chiropractic Treatment, Heat, Inactivity, Massage, Position/Reposition Pharmacological Interventions: Epidural, PRN Medication, Topical Medication PQRS Narrative: Smoking Status Never smoker Blood Pressure 160/99 Pain Intensity [Lower Neck] 10 Scale Used Numeric (1 - 10) Hx Alcohol Use (MH) No Home Medications: Ambulatory Orders Multivitamins, Thera [Multivitamin (formulary)] 1 tab PO DAILY 07/15/17 Vitamin A (10,000 Rq=2661 Mcg) 2,400 units PO DAILY 07/15/17 Gabapentin [Neurontin] 300 mg PO TID 06/02/18 Cetirizine HCl [Zyrtec] 10 mg PO DAILY 12/19/20 Cyclobenzaprine [Flexeril] 5 mg PO HS PRN 12/19/20 Ergocalciferol [Vitamin D2 (1250 Mcg = 59159 Iu)] 1,250 mcg PO SUWE 12/19/20 Iron 25 mg PO DAILY 12/19/20 Zinc 50 mg PO DAILY 12/19/20 traMADol HCl [Ultram] 50 mg PO HS PRN 12/19/20
== END ==
LOC: PNWHC3 07:41
PROVIDERS: ATTEND Physician Assistant Medical
DX: M50.30 Other cervical disc degeneration, unspecified cervical region (principal); M50.20 Other cervical disc displacement, unspecified cervical region; M48.02 Spinal stenosis, cervical region; M51.36 Other intervertebral disc degeneration, lumbar region; M47.816 Spondylosis without myelopathy or radiculopathy, lumbar region; G89.29 Other chronic pain
CPT/HCPCS: 99211

== ENCOUNTER 2022-01-14 06:43 | Day surgery (SDC) | payer BC ==
[2022-01-10 12:41] VITALS: BMI 46.7
[2022-01-14] MEDS ORDERED: LIDOCAINE 1% (10MG/ML) FOR IV START INTRADERMA PRN (07:09)
[2022-01-14] MEDS ORDERED: LACTATED RINGERS 1,000 ML IV SCH ×2 (07:09→08:45)
[2022-01-14 07:37] VITALS: RESP 16; TEMP 97.5
[2022-01-14] MEDS ORDERED: fentaNYL (PF) 50 MCG/ML 2 ML AMP ONE (08:15)
[2022-01-14] MEDS ORDERED: DEXAMETHASONE SOD PHOSPHATE 10 MG/ML 1 ML VIAL ONE (08:15)
[2022-01-14] MEDS ORDERED: MIDAZOLAM 2 MG/2 ML VIAL ONE (08:15)
[2022-01-14] MEDS ORDERED: IOPAMIDOL M200 10 ML VIAL ONE (08:15)
--- NOTE | 2022-01-14 08:37 | P.PCN ---
Date of Procedure: 01/14/22 Description of Procedure: Pre- and Post-operative Diagnosis: Cervical radiculopathy Procedure C5-C6 Inter-Laminar Cervical Epidural Steroid Injection under biplanar fluoroscopy #3 Surgeon: Rina Jones Anesthesia: Local: 1% Lidocaine, IV sedation : Versed 2 mg, and fentanyl 100 g. Complications: None. Estimated blood loss: None Specimens removed: None Fluoroscopic image: saved to electronic medical records. Indications for Procedure: The patient has been suffering from neck pain and pain radiating to the upper extremity . Patient had good pain relief with the previous epidural steroid injection more than 80% relief for 2 weeks duration , which helped pain radiating to upper extremities. Inadequate pain control with pharmacologic regimen. Repeat inter-laminar approach cervical epidural steroid injection was scheduled for the patient. Procedure and Findings: The patient was seen and examined in the holding area. The written informed consent was obtained after explaining the risks, benefits, alternatives of the procedure to the patient. The patient was brought to the procedure room and was placed in the prone position on the operating table. A pillow was placed under the upper chest. Standard anesthesia monitoring was done through out the procedure. Timeout was completed. The skin preparation was done with ChloraPrep 2 and draping was done in usual sterile fashion. Sterile technique was observed throughout the procedure. Under fluoroscopic guidance, the C5-C6 inter-laminar space was identified. 3 ml of 1% Lidocaine was injected with a 25 gauge needle to achieve adequate local anesthesia of the skin and subcutaneous tissue. A 20 gauge, 3.5 inch Tuohy type epidural needle was placed and gradually advanced up to the epidural space using loss of resistance technique and fluoroscopic guidance. Lateral, oblique fluoroscopic views confirm the needle position. No paresthesia was noted. A negative aspiration was confirmed and then 1 ml of Isovue-200 was injected. A good dye spread was seen in the epidural space and it was negative for any intrathecal, intraneural or intravascular spread. A total of 5 ml solution containing 20 mg Dexamethasone, and 3 ml preservative-free Normal Saline was injected slowly with intermittent aspiration. The needle was removed intact, area was cleaned and bandage was applied. Disposition : The patient tolerated the procedure very well. The patient was transferred to the recovery room and remained stable until discharged home. The patient was given detailed discharge instructions for bleeding, infection, increased pain at the injection site, and was advised to seek immediate medical attention should significant side effects develop. The patient will be followed up with our Pain Clinic within 4 weeks for follow-up visit.
[2022-01-14] MEDS ORDERED: IV FLUID CONTINUATION 1,000 ML IV ONE ×2 (08:39)
[2022-01-14 08:57] VITALS: BP 130/85; PULSE 86
--- NOTE | 2022-01-14 09:10 | FL ---
EXAMINATION TYPE: FL guided pain mgmt statistic DATE OF EXAM: 01/14/2022 HISTORY: Fluoroscopy time 6 seconds of fluoroscopy provided. IMPRESSION: 1. Fluoroscopy time.
== END 2022-01-14 09:12 | disposition home or self-care (01) ==
LOC: ORPAIN 06:43
DX: M54.12 Radiculopathy, cervical region (principal); M19.90 Unspecified osteoarthritis, unspecified site; E03.9 Hypothyroidism, unspecified; K21.9 Gastro-esophageal reflux disease without esophagitis; I10 Essential (primary) hypertension; Z79.891 Long term (current) use of opiate analgesic; Z79.899 Other long term (current) drug therapy; Z90.49 Acquired absence of other specified parts of digestive tract; Z98.51 Tubal ligation status; Z98.890 Other specified postprocedural states
CPT/HCPCS: 81025; 62321; J2250; J1100; J3010; Q9966; 99152

== ENCOUNTER → 2022-02-03 | Outpatient (CLI) | payer BC ==
--- NOTE | 2022-02-03 08:21 | P.PN ---
Subjective Progress Note Date: 02/03/22 Principal diagnosis: A 46 yr old female with a history of severe and chronic neck pain secondary to cervical degenerative disc diseases and spondylosis with facet arthropathy presents today for evaluation of REYES interlaminar C5-C6 #3. Patient states she experienced 0% pain relief status post procedure. Pain level is 10 out of 10, constant, sharp, tight sensation in the base of the cervical spine with radiation of pain to the shoulders bilaterally as well as the left upper extremity. She also states she has been experiencing on and off tingling in her right hand. Pain is provoked by lifting. Pain is alleviated with medications, topicals, alternating ice and heat, physical therapy 9 months ago, chiropractic treatments monthly, laying in a reclined position and rest. Patient benefited from manual cervical traction and massage in the exam room. Also complains of l umbar pain, sharp, dull, achy with shooting pain towards the LEs bilaterally for the last 4 months. Interventional pain procedures completed include REYES interlaminar C5-C6 #3 Patient is currently on [place], Flexeril Patient denies any side effects of the medication(s), denies excessive drowsiness or sleepiness, denies suicidal ideation and reports that the current pain medication is helping to control the pain and improve activities of daily living. Patient denies any motor or sensory deficits. Patient denies any fever or night sweats, denies any change in the bowel movements or urination. Physical Examination: -Constitutional: Cooperative. Not in acute distress . -HEENT: Neck is supple. No lymphadenopathy. No thyromegaly. Normal thyroid size. Eyes: No ptosis , no icterus, no photophobia. ENT: No auditory deficits. Normal oropharynx. No Thrush. - Respiratory: Chest clear to auscultations bilaterally. No wheezing. No rhon chi. - Cardiovascular: Regular rate and rhythm. S1 / S2 , no S3 , no S4. - Gastrointestinal: Abdomen soft no tenderness. Bowel sounds positive in all four quadrants. No organomegaly. - Genitourinary: Deferred. - Neurologic: Cranial nerve II to XII intact. No focal neurological deficits. - Psychatric: Alert & oriented x 3. Matching mood & appropriate affect. Judgment and insight intact. - Lymphatic: No Lymphadenopathy. - Musculoskeletal: Cervical spine: Muscle bulk/ tone/ strength in the bilateral upper extremities normal. Spurling test positive Distraction test positive Facet loading test cervical area positive. Lumbar spine: Motor bulk/ tone/ strength lower extremities , thigh and legs : 5/5 Deep tendon reflexes : Normal Knee Jerk. Normal Ankle Jerk . Vertebral body tenderness to palpation over L4 Lumbar Facet Loading Test positive Straight Leg Raise: positive at 30 degrees right side/ left side Gaenslen's Test positive Sacral spine : Severe tenderness over the Sacroiliac joint: right side / left side Range of motion: Flexion of the lumbar spine <60 degrees Range of motion: Extension of the lumbar spine <20 degrees Gaenslen's Test positive Ike test: positive right side / left side Assessment and plan: Chronic neck pain secondary to Cervical degenerative disc disease , spondylosis with facet arthropathy without myelopathy. Lumbar DDD MRI without contrast of lumbar spine ordered Massage of cervical paraspinal & trapezius muscles discussed. Cervical traction device recommended after manual cervical traction demonstration. Use of device discussed. Toradol 2mL/60mg = [place] 5%/ 1cc IM x 1. All patient questions answered MAPS reviewed and it was appropriate. I have spent 31 minutes on patient care today. Dr Dallas was available by phone for the evaluation of this patient. The time was used to review the medical records including relevant urine studies and Prescription history (MAPs), review of the available imaging, evaluation and examination of the patient, coordination of care with the medical staff and if applicable referring physicians, as well as creation of the medical record PQRS Measure Charge Sheet PQRS Narrative: Smoking Status Never smoker Hx Alcohol Use (MH) No Home Medications: Ambulatory Orders Multivitamins, Thera [Multivitamin (formulary)] 1 tab PO DAILY 07/15/17 Vitamin A (10,000 Ii=0112 Mcg) 2,400 units PO DAILY 07/15/17 Gabapentin [Neurontin] 300 mg PO TID 06/02/18 Cetirizine HCl [Zyrtec] 10 mg PO DAILY 12/19/20 Cyclobenzaprine [Flexeril] 5 mg PO HS PRN 12/19/20 Ergocalciferol [Vitamin D2 (1250 Mcg = 32435 Iu)] 1,250 mcg PO SUWE 12/19/20 Iron 25 mg PO DAILY 12/19/20 Zinc 50 mg PO DAILY 12/19/20 traMADol HCl [Ultram] 50 mg PO HS PRN 12/19/20 Nortriptyline HCl [Pamelor] 100 mg PO HS 01/10/22
[2022-02-03 08:35] VITALS: BP 139/76; PULSE 99; RESP 18
== END ==
LOC: PNWHC3 07:40
PROVIDERS: ATTEND Specialist
DX: M50.30 Other cervical disc degeneration, unspecified cervical region (principal); M47.812 Spondylosis without myelopathy or radiculopathy, cervical region; G89.29 Other chronic pain; M51.36 Other intervertebral disc degeneration, lumbar region
CPT/HCPCS: 99211

== ENCOUNTER 2022-04-24 07:17 | Day surgery (SDC) | payer BC ==
[2022-04-23 10:09] VITALS: BMI 47.8
[~2022-04-24 07:17] MED LIST changes: +LIDOCAINE 1% (10MG/ML) FOR IV START INTRADERMA PRN
--- NOTE | 2022-04-24 07:37 | P.GSHP ---
History of Present Illness H&P Date: 04/24/22 CHIEF COMPLAINT: GERD and colon screen HISTORY OF PRESENT ILLNESS: The patient is a 46-year-old female who presents with gastroesophageal reflux disease and need for colon screen. Upper and lower endoscopy were offered for further evaluation and management. PAST MEDICAL HISTORY: Please see list. PAST SURGICAL HISTORY: Please see list. MEDICATIONS: Please see list. ALLERGIES: Please see list. SOCIAL HISTORY: No illicit drug use FAMILY HISTORY: No reports of Crohn disease or ulcerative colitis. REVIEW OF ORGAN SYSTEMS: CONSTITUTIONAL: No reports of fevers or chills. GI: Denies any blood in stools or constipation. PHYSICAL EXAM: VITAL SIGNS: Stable GENERAL: Well-developed pleasant in no acute distress. HEENT: No scleral icterus. Extraocular movements grossly intact. Moist buccal mucosa. NECK: Supple without lymphadenopathy. CHEST: Unlabored respirations. Equal bilateral excursions. CARDIOVASCULAR: Regular rate and rhythm. Distal 2+ pulses. ABDOMEN: Soft, nondistended. MUSCULOSKELETAL: No clubbing, cyanosis, or edema. ASSESSMENT: 1. Gastroesophageal reflux disease 2. Colon screen. PLAN: 1. Recommend proceeding with an upper and lower endoscopy Past Medical History Past Medical History: Diabetes Mellitus, Fibromyalgia, GERD/Reflux, Hypertension, Osteoarthritis (OA), Skin Disorder, Thyroid Disorder Additional Past Medical History / Comment(s): ECZEMA, no Rx for BP OR THYROID , was told IBS yrs ago, DIET CONTROLLED DIABETIC History of Any Multi-Drug Resistant Organisms: None Reported Past Surgical History: Bariatric Surgery, Section, Cholecystectomy, Orthopedic Surgery, Tubal Ligation, Uterine Ablation Additional Past Surgical History / Comment(s): neuroma removed from rt foot. LT Knee arthroscopy. SINUS SURGERY/ DEVIATED SEPTUM. panniculectomy, skin removal from bilateral legs, right foot plantar faciitis, PAIN CLINIC PROCEDURES, GASTRIC SLEEVE, Past Anesthesia/Blood Transfusion Reactions: Motion Sickness, Postoperative Nausea & Vomiting (PONV) Smoking Status: Never smoker - Past Family History Mother Family Medical History: No Reported History Medications and Allergies Home Medications Medication Instructions Recorded Confirmed Type Multivitamins, Thera [Multivitamin 1 tab PO DAILY 07/15/17 04/23/22 History (formulary)] Vitamin A (10,000 Tt=3815 Mcg) 2,400 units PO DAILY 07/15/17 04/23/22 History Gabapentin [Neurontin] 300 mg PO TID 06/02/18 04/24/22 History Cetirizine HCl [Zyrtec] 10 mg PO DAILY 12/19/20 04/24/22 History Cyclobenzaprine [Flexeril] 5 mg PO HS PRN 12/19/20 04/24/22 History Ergocalciferol [Vitamin D2 (1250 1,250 mcg PO SUWE 12/19/20 04/24/22 History Mcg = 06678 Iu)] Iron 25 mg PO DAILY 12/19/20 04/23/22 History Zinc 50 mg PO DAILY 12/19/20 04/23/22 History traMADol HCl [Ultram] 50 mg PO HS PRN 12/19/20 04/24/22 History Nortriptyline HCl [Pamelor] 100 mg PO HS 01/10/22 04/24/22 History Allergies Allergy/AdvReac Type Severity Reaction Status Date / Time No Known Allergies Allergy Verified 04/24/22 07:28
[2022-04-24 07:46] LABS: Glucose,Whole Blood 106 mg/dL (70-110)
[2022-04-24 07:47] VITALS: TEMP 96.3
[2022-04-24] MEDS ORDERED: KETAMINE 10 MG/ML 20 ML VIAL ONE (08:16)
[2022-04-24] MEDS ORDERED: LIDOCAINE 2% INJ 20 MG/ML (2 ML VIAL) ONE (08:16)
[2022-04-24] MEDS ORDERED: PROPOFOL 10 MG/ML 20 ML VIAL IV ONE (08:16)
--- NOTE | 2022-04-24 08:55 | P.PCN ---
Date of Procedure: 04/24/22 Description of Procedure: PREOPERATIVE DIAGNOSIS: Gastroesophageal reflux disease Dysphagia History of sleeve gastrectomy POSTOPERATIVE DIAGNOSIS: Esophageal stricture Gastritis with recent bleed History of sleeve gastrectomy Diaphragmatic hiatal hernia OPERATION: Esophagogastroduodenoscopy with rigid dilator over the guidewire 51 Fr with dilation Esophagogastroduodenoscopy with cold forceps biopsies stomach/antrum and duodenal SURGEON: Luz Vivar MD ANESTHESIA: MAC. INDICATIONS: The patient is a 46-year-old female who presents with dysphagia and history of sleeve gastrectomy. Benefits and risks of the procedure were described. Informed consent was obtained. DESCRIPTION: The patient was brought into the endoscopy suite and laid in the left lateral decubitus position. After a timeout was confirmed, the procedure was initiated. An Olympus gastroscope was passed into the posterior oropharynx where an upper esophageal stenosis was identified. The scope was passed down to the distal esophagus. To address the upper esophageal stenosis, rigid dilator over guidewire was selected. Next using an Nigerien rigid dilator, a guidewire was placed through the gastroscope. Next the scope was withdrawn. A 51-Bangladeshi rigid Nigerien dilator was passed carefully along the posterior oropharynx to 50 cm and left in place for 2-3 minutes stretch. The dilator was withdrawn including the guidewire. The scope was reentered along the posterior oropharynx with no findings of full-thi ckness tear of the upper esophageal sphincter. Additional findings below. Within the stomach, acute gastritis with bleeding was identified. Along the body of the stomach and duodenum, cold forceps biopsies obtained. The lower esophageal valve was evaluated with Hill grade 3 lower esophageal valve. LA grade A erosive esophagitis was identified. No full-thickness injury was encountered. The GI tract was desufflated. The patient tolerated the procedure well. FINDINGS: Upper esophageal stenosis dilated 51-Bangladeshi rigid dilator Diaphragmatic hiatus at 37 cm from the incisors Squamocolumnar junction 35 cm from the incisors. Diaphragmatic hiatal hernia, 2 cm Gastritis along the gastric body and fundus with recent bleeding and cold forceps biopsies obtained Duodenum with cold biopsies obtained LA grade A erosive esophagitis Hill grade 3 lower esophageal valve. Dilated gastric sleeve with easy retroflexion to the diaphragmatic hiatus RECOMMENDATIONS: Upper endoscopy as needed Recommend hiatal hernia repair
--- NOTE | 2022-04-24 08:58 | P.PCN ---
Date of Procedure: 04/24/22 Description of Procedure: PREOPERATIVE DIAGNOSIS: Colonoscopy screening. POSTOPERATIVE DIAGNOSIS: Colonoscopy screening. OPERATION: Colonoscopy to the cecum, ileocecal valve and appendiceal orifice. SURGEON: Luz Vivar MD. ANESTHESIA: MAC. INDICATIONS: The patient is a 46-year-old female who presents for colonoscopy screening. Benefits and risks were described and informed consent was obtained. DESCRIPTION OF PROCEDURE: The patient had undergone Sutab prep. The patient had been brought into the operating room and laid in the left lateral decubitus position. After adequate intravenous sedation, the rectum was examined with 2% lidocaine jelly. External hemorrhoids were encountered. The rectal tone was within normal limits. No lesions were palpated in the rectal vault. An Olympus colonoscope was advanced until the cecum, ileocecal valve and appendiceal orifice were clearly viewed. The prep was good. No scattered diverticulosis was encountered. No colonic polyps were found. No evidence of focal colitis was found. Retroflexion of the scope demonstrated grade 2 internal hemorrhoids without active bleeding or inflammation. The colon was desufflated. The patient had tolerated the procedure well. Withdrawal time was over 6 minutes. FINDINGS: Aronchick preparation quality scale 2 (1-5) Internal hemorrhoids, grade 2 External prolapsed hemorrhoids, grade 2 No arteriovenous malformations. No adenomatous polyps. No focal colitis. RECOMMENDATIONS: Lower endoscopy 10 years, 2031 Plan - Discharge Summary Discharge Rx Participant: No New Discharge Prescriptions: Continue Multivitamins, Thera [Multivitamin (formulary)] 1 tab PO DAILY Vitamin A (10,000 Bd=3669 Mcg) 2,400 units PO DAILY Gabapentin [Neurontin] 300 mg PO TID traMADol HCl [Ultram] 50 mg PO HS PRN PRN Reason: Pain Cyclobenzaprine [Flexeril] 5 mg PO HS PRN PRN Reason: Muscle Spasm Cetirizine HCl [Zyrtec] 10 mg PO DAILY Zinc 50 mg PO DAILY Iron 25 mg PO DAILY Ergocalciferol [Vitamin D2 (1250 Mcg = 33749 Iu)] 1,250 mcg PO SUWE Nortriptyline HCl [Pamelor] 100 mg PO HS Discharge Medication List Multivitamins, Thera [Multivitamin (formulary)] 1 tab PO DAILY 07/15/17 [History] Vitamin A (10,000 Ph=9753 Mcg) 2,400 units PO DAILY 07/15/17 [History] Gabapentin [Neurontin] 300 mg PO TID 06/02/18 [History] Cetirizine HCl [Zyrtec] 10 mg PO DAILY 12/19/20 [History] Cyclobenzaprine [Flexeril] 5 mg PO HS PRN 12/19/20 [History] Ergocalciferol [Vitamin D2 (1250 Mcg = 81295 Iu)] 1,250 mcg PO SUWE 12/19/20 [History] Iron 25 mg PO DAILY 12/19/20 [History] Zinc 50 mg PO DAILY 12/19/20 [History] traMADol HCl [Ultram] 50 mg PO HS PRN 12/19/20 [History] Nortriptyline HCl [Pamelor] 100 mg PO HS 01/10/22 [History] [facility]Ref[facility] [place] [facility] [place] [facility] Patient Instructions/Handouts: Hiatal Hernia (DC), *Surgery [facility] - (Anesthesia) Endoscopy Discharge Instructions, Esophageal Dilation (GEN) Activity/Diet/Wound Care/Special Instructions: Repeat colonoscopy in 10 years, 2031. Diet as tolerated Discharge Disposition: HOME SELF-CARE
[2022-04-24 09:20] VITALS: BP 166/86; PULSE 79; RESP 20
== END 2022-04-24 09:48 | disposition home or self-care (01) ==
LOC: ORWHC2ENDO 07:17
PROVIDERS: ATTEND Surgery Plastic and Reconstructive Surgery
DX: Z12.11 Encounter for screening for malignant neoplasm of colon (principal); K29.51 Unspecified chronic gastritis with bleeding; K22.2 Esophageal obstruction; K44.9 Diaphragmatic hernia without obstruction or gangrene; Z98.84 Bariatric surgery status; K64.4 Residual hemorrhoidal skin tags; K64.1 Second degree hemorrhoids; K21.9 Gastro-esophageal reflux disease without esophagitis; E11.9 Type 2 diabetes mellitus without complications; M79.7 Fibromyalgia; I10 Essential (primary) hypertension; M19.90 Unspecified osteoarthritis, unspecified site; E07.9 Disorder of thyroid, unspecified; L30.9 Dermatitis, unspecified; Z98.891 History of uterine scar from previous surgery; Z90.49 Acquired absence of other specified parts of digestive tract; Z98.51 Tubal ligation status; Z98.890 Other specified postprocedural states; Z79.899 Other long term (current) drug therapy
CPT/HCPCS: 81025; 88305; 43239; 43248; J2704; J2001; G0121; 43249; 45378

== ENCOUNTER → 2022-06-25 | Outpatient (CLI) | payer BC ==
[2022-06-25 16:20] VITALS: BP 151/88; PULSE 98; TEMP 98.3; BMI 47.6
--- NOTE | 2022-06-25 16:59 | P.BASOAP ---
Subjective Progress Note Date: 06/25/22 She reports chronic fatigue. Goal synthroid of 185 mcg. Highest she took was 100 mcg. She was lost to follow-up. She had sleep apnea prior. Recommend sleep apnea re-check. Hold on synthroid adjustment. Hiatal hernia repair, patient wishes to hold on that. Objective - Vital Signs Vital signs: Vital Signs Temp 98.3 F 06/25/22 16:14 Pulse 98 06/25/22 16:14 Resp BP 151/88 06/25/22 16:14 Pulse Ox FiO2 Intake & Output 06/24/22 06/25/22 06/25/22 18:59 06:59 18:59 Weight 123.831 kg Assessment/Plan Plan: Date: 06/25/22 Initial Weight: 121.608 kg Initial BMI: 46.7 Current Weight: 123.831 kg Current BMI: 47.6 Type of Surgery: Total Volume in Band: Previous Volume: Volume Removed: Volume Added: Band Size:
== END | disposition home or self-care (01) ==
LOC: BARWHC3 15:51
PROVIDERS: ATTEND Surgery Plastic and Reconstructive Surgery
DX: E66.01 Morbid (severe) obesity due to excess calories (principal); Z68.42 Body mass index [BMI] 45.0-49.9, adult
CPT/HCPCS: 99211

== ENCOUNTER → 2022-08-11 | Outpatient (CLI) | payer BC ==
[2022-08-11 11:13] VITALS: BMI 47.6
== END ==
LOC: BARWHC3 08:39
PROVIDERS: ATTEND Surgery Plastic and Reconstructive Surgery
DX: Z71.3 Dietary counseling and surveillance (principal); E66.01 Morbid (severe) obesity due to excess calories; Z68.42 Body mass index [BMI] 45.0-49.9, adult
CPT/HCPCS: 97804

== ENCOUNTER 2024-01-14 06:50 | Day surgery (SDC) | payer BC ==
[2024-01-12 14:53] VITALS: BMI 48.2
[2024-01-14] MEDS: LACTATED RINGERS 1,000 ML IV SCH (07:32)
[2024-01-14 07:46] LABS: Glucose,Whole Blood 110 mg/dL (70-110)
[2024-01-14 07:57] VITALS: RESP 16; TEMP 96.7
[2024-01-14] MEDS ORDERED: LIDOCAINE 1% INJ 10MG/ML (20 ML MDV) ONE (08:18)
[2024-01-14] MEDS ORDERED: GLYCOPYRROLATE 0.2 MG/ML 2 ML VIAL ONE (08:18)
[2024-01-14] MEDS ORDERED: PROPOFOL 10 MG/ML 20 ML VIAL IV ONE (08:18)
--- NOTE | 2024-01-14 08:21 | P.GSHP ---
History of Present Illness H&P Date: 01/14/24 CHIEF COMPLAINT: Dysphagia and change in bowel habits HISTORY OF PRESENT ILLNESS: The patient is a 48-year-old female who presents with dysphagia and change in bowel habits for over 3 months. Upper and lower endoscopy were offered for further evaluation and management. PAST MEDICAL HISTORY: Please see list. PAST SURGICAL HISTORY: Please see list. MEDICATIONS: Please see list. ALLERGIES: Please see list. SOCIAL HISTORY: No illicit drug use FAMILY HISTORY: No reports of Crohn disease or ulcerative colitis. REVIEW OF ORGAN SYSTEMS: CONSTITUTIONAL: No reports of fevers or chills. GI: Denies change in bowel habits. PHYSICAL EXAM: VITAL SIGNS: Stable GENERAL: Well-developed pleasant in no acute distress. HEENT: No scleral icterus. Extraocular movements grossly intact. Moist buccal mucosa. NECK: Supple without lymphadenopathy. CHEST: Unlabored respirations. Equal bilateral excursions. CARDIOVASCULAR: Regular rate and rhythm. Distal 2+ pulses. ABDOMEN: Soft, nondistended. MUSCULOSKELETAL: No clubbing, cyanosis, or edema. ASSESSMENT: 1. Dysphagia 2. Change in bowel habits PLAN: 1. Recommend proceeding with an upper and lower endoscopy Past Medical History Past Medical History: Diabetes Mellitus, Fibromyalgia, GERD/Reflux, Hypertension, Osteoarthritis (OA), Skin Disorder, Thyroid Disorder Additional Past Medical History / Comment(s): ECZEMA, no Rx for BP OR THYROID , was told IBS yrs ago, DIET CONTROLLED DIABETIC , HAS BEEN HAVING TROUBLE WITH FOOD GETTING STUCK AND INCREASED IBS SYMPTOMS History of Any Multi-Drug Resistant Organisms: None Reported Past Surgical History: Bariatric Surgery, Section, Cholecystectomy, Orthopedic Surgery, Tubal Ligation, Uterine Ablation Additional Past Surgical History / Comment(s): neuroma removed from rt foot. LT Knee arthroscopy. SINUS SURGERY/ DEVIATED SEPTUM. panniculectomy, skin removal from bilateral legs, right foot plantar faciitis, PAIN CLINIC FL OCEDURES, GASTRIC SLEEVE, EGD, COLONOSCOPY Past Anesthesia/Blood Transfusion Reactions: Motion Sickness, Postoperative Nausea & Vomiting (PONV) Smoking Status: Never smoker - Past Family History Mother Family Medical History: No Reported History Medications and Allergies Home Medications Medication Instructions Recorded Confirmed Type Vitamin A (10,000 Xi=5514 Mcg) 2,400 units PO DAILY 07/15/17 01/12/24 History Gabapentin [Neurontin] 300 mg PO TID 06/02/18 01/12/24 History Cetirizine HCl [Zyrtec] 10 mg PO DAILY 12/19/20 01/12/24 History Cyclobenzaprine [Flexeril] 5 mg PO HS PRN 12/19/20 01/12/24 History Ergocalciferol [Vitamin D2 (1250 1,250 mcg PO SUWE 12/19/20 01/12/24 History Mcg = 41665 Iu)] Iron 25 mg PO DAILY 12/19/20 01/12/24 History Nortriptyline HCl [Pamelor] 100 mg PO HS 01/10/22 01/12/24 History Allergies Allergy/AdvReac Type Severity Reaction Status Date / Time No Known Allergies Allergy Verified 01/14/24 07:19 Surgical - Exam Vital Signs Temp Pulse Resp BP Pulse Ox 96.7 F L 88 16 179/81 97 01/14/24 07:22 01/14/24 07:22 01/14/24 07:22 01/14/24 07:22 01/14/24 07:22
--- NOTE | 2024-01-14 08:51 | P.PCN ---
Date of Procedure: 01/14/24 Description of Procedure: PREOPERATIVE DIAGNOSIS: Dysphagia. Gastroesophageal reflux disease. s/p sleeve gastrectomy. POSTOPERATIVE DIAGNOSIS: Dysphagia. Gastroesophageal reflux disease. s/p vertical sleeve gastrectomy. Esophageal stricture, upper esophageal stenosis Diaphragmatic hiatal hernia Gastritis OPERATION: Esophagogastroduodenoscopy with rigid dilation, 57-Afghan Esophagogastroduodenoscopy with cold forcep biopsies SURGEON: Luz Vivar MD ANESTHESIA: MAC. INDICATIONS: The patient is a 48-year-old female who presents with a history of dysphagia, sleeve gastrectomy including gastroesophageal reflux disease. Benefits and risks of the procedure were described. Informed consent was obtained. DESCRIPTION: The patient was brought into the endoscopy suite and laid in the left lateral decubitus position. After a timeout was confirmed, the procedure was initiated. An Olympus gastroscope was passed along the posterior oropharynx down to the distal esophagus where the squamocolumnar junction was unremarkable. Multiple tertiary esophageal contractions were identified consistent with esophageal dysmotility. Hiatal hernias were identified. The gastric pouch was entered. No gastric strictures were identified along her sleeve. The antrum was unremarkable. The scope was removed as a guidewire was placed. A guidewire followed by a 57-Afghan rigid dilator was placed for 2 minutes. Dilators were removed with guidewire. The upper scope was reinserted. The scope was easily passed without resistance. Additionally, gastritis of the antrum and body of sleeve was identified with biopsies obtained of the esophagus, duodenum and stomach. The mucosa was intact. No full-thickness injury was encountered. The GI tract was desufflated. The patient tolerated the procedure well. FINDINGS: Esophageal stenosis, upper esophagus dilated Cold forcep biopsies obtained of distal esophagus, antrum, duodenum Acute on chronic gastritis of the superior gastric pouch identified Widely patent sleeve with easy retroflexion along the antrum Diaphragmatic hernia, 4 cm, 37 to 40 cm from the incisors LA grade C erosive esophagitis, biopsies obtained Rigid dilation 57-Afghan RECOMMENDATIONS: Recommend swallow study Recommend possible conversion sleeve to gastric bypass
[2024-01-14 08:59] LABS: Glucose,Whole Blood 86 mg/dL (70-110)
[2024-01-14 09:08] VITALS: BP 143/70; PULSE 85
--- NOTE | 2024-01-14 09:28 | P.PCN ---
Date of Procedure: 01/14/24 Description of Procedure: PREOPERATIVE DIAGNOSIS: Change in bowel habits POSTOPERATIVE DIAGNOSIS: Change in bowel habits OPERATION: Colonoscopy to the cecum, ileocecal valve and appendiceal orifice. SURGEON: Luz Vivar MD. ANESTHESIA: MAC. INDICATIONS: The patient is a 48-year-old female who presents for colonoscopy screening. Benefits and risks were described and informed consent was obtained. DESCRIPTION OF PROCEDURE: The patient had undergone Suprep. The patient had been brought into the operating room and laid in the left lateral decubitus position. After adequate intravenous sedation, the rectum was examined with 2% lidocaine jelly. External hemorrhoids were encountered. The rectal tone was within normal limits. No lesions were palpated in the rectal vault. An Olympus colonoscope was advanced until the cecum, ileocecal valve and appendiceal orifice were clearly viewed. The prep was excellent. No scattered diverticulosis was encountered. No colonic polyps were found. No evidence of focal colitis was found. Retroflexion of the scope demonstrated grade 1 internal hemorrhoids without active bleeding or inflammation. The colon was desufflated. The patient had tolerated the procedure well. Withdrawal time was over 6 minutes. FINDINGS: Aronchick preparation quality scale 1 (1-5) Internal hemorrhoids, grade 1 External prolapsed hemorrhoids, grade 2 No arteriovenous malformations. No adenomatous polyps. No focal colitis. RECOMMENDATIONS: Lower endoscopy 10 years 2033 Plan - Discharge Summary Discharge Rx Participant: No New Discharge Prescriptions: Continue Vitamin A (10,000 Ts=1283 Mcg) 2,400 units PO DAILY Gabapentin [Neurontin] 300 mg PO TID Cyclobenzaprine [Flexeril] 5 mg PO HS PRN PRN Reason: Muscle Spasm Cetirizine HCl [Zyrtec] 10 mg PO DAILY Iron 25 mg PO DAILY Ergocalciferol [Vitamin D2 (1250 Mcg = 01432 Iu)] 1,250 mcg PO SUWE Nortriptyline HCl [Pamelor] 100 mg PO HS Discharge Medication List Vitamin A (10,000 Aj=1836 Mcg) 2,400 units PO DAILY 07/15/17 [History] Gabapentin [Neurontin] 300 mg PO TID 06/02/18 [History] Cetirizine HCl [Zyrtec] 10 mg PO DAILY 12/19/20 [History] Cyclobenzaprine [Flexeril] 5 mg PO HS PRN 12/19/20 [History] Ergocalciferol [Vitamin D2 (1250 Mcg = 14295 Iu)] 1,250 mcg PO SUWE 12/19/20 [History] Iron 25 mg PO DAILY 12/19/20 [History] Nortriptyline HCl [Pamelor] 100 mg PO HS 01/10/22 [History] Follow up [facility]ment[facility]Ref[facility] [place] [facility] Patient Instructions/Handouts: Esophageal Dilation (DC) Activity/Diet/Wound Care/Special Instructions: Recommend warm beverages for today. Repeat colonoscopy 10 years, 2033 Discharge Disposition: HOME SELF-CARE
== END 2024-01-14 09:46 | disposition home or self-care (01) ==
LOC: ORWHC2ENDO 06:50
PROVIDERS: ATTEND Surgery Plastic and Reconstructive Surgery
DX: K29.50 Unspecified chronic gastritis without bleeding (principal); K21.9 Gastro-esophageal reflux disease without esophagitis; K44.9 Diaphragmatic hernia without obstruction or gangrene; I10 Essential (primary) hypertension; E11.9 Type 2 diabetes mellitus without complications; M19.90 Unspecified osteoarthritis, unspecified site; M79.7 Fibromyalgia; K22.2 Esophageal obstruction; Z90.49 Acquired absence of other specified parts of digestive tract; Z98.51 Tubal ligation status; Z98.84 Bariatric surgery status; Z79.899 Other long term (current) drug therapy
CPT/HCPCS: 81025; 88305; 45378; 43239; 43248; J2001; J2704

== ENCOUNTER → 2024-02-03 | Outpatient (CLI) | payer BC ==
[2024-02-03 16:01] VITALS: BP 124/88; PULSE 83; TEMP 97.8; BMI 48.4
--- NOTE | 2024-02-03 16:01 | P.BASOAP ---
Subjective Progress Note Date: 02/03/24 She has severe reflux and contour abnormalities with her sleeve. Recommend swallow study. She has hiatal hernia. She has regurgitation at night. Recommend conversion from sleeve to bypass to improve her quality of life and aspiration pneumonia. Needs new labs and nutritional assessment. She has chronic pain syndrome. She has neuropathy. Esophagram needed. Omeprazole and synthroid advised. Objective - Vital Signs Vital signs: Vital Signs Temp 97.8 F 02/03/24 15:36 Pulse 83 02/03/24 15:36 Resp BP 124/88 02/03/24 15:36 Pulse Ox FiO2 Intake & Output 02/02/24 02/03/24 02/03/24 18:59 06:59 18:59 Weight 126.008 kg Assessment/Plan Plan: Date: 02/03/24 Initial Weight: 121.608 kg Initial BMI: 46.7 Current Weight: 126.008 kg Current BMI: 48.4 Type of Surgery: Total Volume in Band: Previous Volume: Volume Removed: Volume Added: Band Size:
== END ==
LOC: BARWHC3 15:30
PROVIDERS: ATTEND Surgery Plastic and Reconstructive Surgery
DX: E66.01 Morbid (severe) obesity due to excess calories (principal)
CPT/HCPCS: 99211

== ENCOUNTER → 2024-02-11 | Outpatient (CLI) | payer BC ==
--- NOTE | 2024-02-11 13:57 | FL ---
EXAMINATION TYPE: FL barium swallow DATE OF EXAM: 02/11/2024 CLINICAL INDICATION: 48 year-old female R13.10, dysphagia. Patient with trouble swallowing, reflux, a nd history of sleeve gastrectomy in 2016. COMPARISON: None Total Fluoroscopy Time: 2 minutes 5 seconds DAP- 533.53 [id number] 55 images obtained. FINDINGS: The swallowing mechanism is normal and hypopharyngeal anatomy is preserved. The cervical and thoraci c portions have a normal course and caliber. Mild tertiary peristaltic waves are noted with some yojana y in clearance of contrast from the distal esophagus. Allowing for single contrast technique, no discrete mucosal abnormality or persistent filling defect is seen. There is a small sliding hiatal hernia with severe gastroesophageal reflux elicited with Valsalva man euver. Postsurgical change of sleeve gastrectomy in the upper abdomen. IMPRESSION: 1. Small sliding hiatal hernia with severe gastroesophageal reflux. 2. Mild dysmotility distal third esophagus. 3. Status post sleeve gastrectomy.
== END | disposition home or self-care (01) ==
LOC: RADUSWWP 08:03
PROVIDERS: ATTEND Surgery Plastic and Reconstructive Surgery
DX: K44.9 Diaphragmatic hernia without obstruction or gangrene (principal); K21.9 Gastro-esophageal reflux disease without esophagitis; R13.10 Dysphagia, unspecified; Z98.84 Bariatric surgery status
CPT/HCPCS: 74220

== ENCOUNTER → 2024-03-10 | Outpatient (CLI) | payer BC ==
[2024-03-10 17:19] LABS: INR 0.9 (<1.2); Partial Thromboplastin Time 25.1 sec (22.0-30.0); Prothrombin Time 10.1 sec (10.0-12.5)
[2024-03-11 03:18] LABS: HGB 12.7 g/dL (12.0-15.0); MCH 29.7 pg (27.0-32.0); MCHC 32.6 g/dL (32.0-37.0); MCV 91.1 FL (80.0-97.0); Mean Platelet Volume 9.4 FL (9.5-12.2); NRBC Per 100 WBC 0 X 10*3/uL (0.00-0.01); Platelet Count 271 X 10*3/uL (140-440); RBC 4.28 X 10*6/uL (4.10-5.20); RDW 13.6 % (11.5-14.5); WBC 10.51 X 10*3/uL (4.50-10.00)
[2024-03-11 03:22] LABS: Prealbumin 22.7 mg/dL (18.0-42.0)
[2024-03-11 04:40] LABS: % Iron Saturation 12.73 (12.00-45.00); ALT 19 U/L (8-44); AST 22 U/L (13-35); Albumin 4.4 g/dL (3.8-4.9); Albumin/Globulin Ratio 1.91 Ratio (1.60-3.17); Alkaline Phosphatase 64 U/L (41-126); Blood Urea Nitrogen 9.6 mg/dL (9.0-27.0); Calcium 9.5 mg/dL (8.7-10.3); Carbon Dioxide 25.8 mmol/L (21.6-31.8); Chloride 102 mmol/L (96-109); Globulin 2.3 g/dL (1.6-3.3); Glucose 88 mg/dL (70-110); Iron 42 UG/DL (50-170); Magnesium 1.9 mg/dL (1.5-2.4); Phosphorus 4.2 mg/dL (2.4-5.1); Potassium 4.3 mmol/L (3.5-5.5); Sodium 140 mmol/L (135-145); Total Bilirubin 0.3 mg/dL (0.3-1.2); Total Iron Binding Capacity 330 UG/DL (228-460); Total Protein 6.7 g/dL (6.2-8.2)
[2024-03-11 13:28] LABS: Zinc, Serum 95 ug/dL (60-130)
== END | disposition home or self-care (01) ==
LOC: LABWHC1 16:08
PROVIDERS: ATTEND Surgery Plastic and Reconstructive Surgery
DX: E66.01 Morbid (severe) obesity due to excess calories (principal); E89.1 Postprocedural hypoinsulinemia; D50.8 Other iron deficiency anemias; K91.2 Postsurgical malabsorption, not elsewhere classified; E44.0 Moderate protein-calorie malnutrition; E44.1 Mild protein-calorie malnutrition; E45 Retarded development following protein-calorie malnutrition; K74.1 Hepatic sclerosis; N19 Unspecified kidney failure; T56.894A Toxic effect of other metals, undetermined, initial encounter; K50.90 Crohn's disease, unspecified, without complications
CPT/HCPCS: 36415; 80053; 80061; 82306; 82525; 82607; 82728; 82746; 83036; 83540; 83550; 83735; 83970; 84100; 84134; 84255; 84425; 84443; 84590; 84630; 85027; 85610; 85730; 93005

== ENCOUNTER → 2024-06-29 | Outpatient (CLI) | payer BC ==
[2024-06-30 02:38] LABS: ALT 53 U/L (8-44); AST 38 U/L (13-35); Albumin 4.7 g/dL (3.8-4.9); Albumin/Globulin Ratio 2.04 Ratio (1.60-3.17); Alkaline Phosphatase 67 U/L (41-126); BUN/Creat Ratio 22.75 Ratio (12.00-20.00); Blood Urea Nitrogen 18.2 mg/dL (9.0-27.0); Chloride 101 mmol/L (96-109); Globulin 2.3 g/dL (1.6-3.3); Glucose 92 mg/dL (70-110); Potassium 4.3 mmol/L (3.5-5.5); Sodium 137 mmol/L (135-145); Total Bilirubin <0.2 mg/dL (0.3-1.2)
[2024-06-30 02:52] LABS: Basophils # (A) 0.05 X 10*3/uL (0.00-0.10); Basophils % (A) 0.5 %; Eosinophils # (A) 0.13 X 10*3/uL (0.04-0.35); Eosinophils % (A) 1.2 %; HGB 13.4 g/dL (12.0-15.0); Lymphocytes # (A) 2.23 X 10*3/uL (0.90-5.00); Lymphocytes % (A) 20.2 %; MCH 30.2 pg (27.0-32.0); MCHC 31.9 g/dL (32.0-37.0); MCV 94.6 FL (80.0-97.0); Mean Platelet Volume 9.7 FL (9.5-12.2); Monocytes # (A) 0.63 X 10*3/uL (0.20-1.00); Monocytes % (A) 5.7 %; NRBC Per 100 WBC 0 X 10*3/uL (0.00-0.01); Neutrophils # (A) 7.98 X 10*3/uL (1.80-7.70); Neutrophils % (A) 72.2 %; Platelet Count 343 X 10*3/uL (140-440); RBC 4.44 X 10*6/uL (4.10-5.20); RDW 12.9 % (11.5-14.5); WBC 11.04 X 10*3/uL (4.50-10.00)
== END | disposition home or self-care (01) ==
LOC: LABPAT 15:56
PROVIDERS: ATTEND Surgery Plastic and Reconstructive Surgery
DX: Z01.818 Encounter for other preprocedural examination (principal)
CPT/HCPCS: 80053; 85025; 86850; 86900; 86901

== ENCOUNTER 2024-07-04 06:39 | Inpatient (IN) | payer BC ==
--- NOTE | 2024-07-04 06:20 | P.GSHP ---
History of Present Illness H&P Date: 07/04/24 CHIEF COMPLAINT: Followup sleeve gastrectomy HISTORY OF PRESENT ILLNESS: Mary Jaimes is a 48-year-old female, status post sleeve gastrectomy 07/11/2016. She is 8 years out from her procedure. She comes in with weight re-gain and new co-morbidities including osteoarthritis of the knees, hips and lower back. She has developed sleep apnea and metabolic syndrome. She reports chronic fatigue. She has hypothyroidism. She was lost to follow-up. She reports severe gastroesophageal reflux disease. She presents for gastric bypass to correct her morbid obesity including reflux disease. Her highest weight for her 5 feet 3-10/27 frame was 273 pound. Jupiter body weight is 140 pounds. Body mass index is down from 47.7 down to 47.6. PAST MEDICAL HISTORY: 1. Osteoarthritis of the bilateral knees 2. Osteoarthritis of the bilateral hips 3. Osteoarthritis of the lower back 4. Seasonal allergies. 5. Depression 6. Obstructive sleep apnea 7. Metabolic syndrome 8. Morbid obesity due to excess calories, BMI 47.7 initial PAST SURGICAL HISTORY: 1. . 2. Cholecystectomy. 3. Tubal ligation. 4. Foot surgery. 5. Knee surgery. 6. Nasal surgery. 7. Dental surgery. 8. Upper endoscopy. 9. Sleeve gastrectomy. 10. Thigh plasty 11. Panniculectomy MEDICATIONS: Reviewed ALLERGIES: Reviewed SOCIAL HISTORY: Lifelong nontobacco user. No heavy alcohol use. FAMILY HISTORY: Pertinent for morbid obesity. REVIEW OF SYSTEMS: CONSTITUTIONAL: Her highest weight for her 5 feet 3-2 frame was 273 pound. Jupiter body weight is 140 pounds. GASTROINTESTINAL: Resolved gastroesophageal reflux disease. Constipation resolved. RESPIRATORY: Resolved obstructive sleep apnea. Denies dyspnea on exertion. MUSCULOSKELETAL: Has osteoarthritis of the lower back including hips and knees. HEENT: Wears glasses. No reports of dysphagia. No reports of troubles with hearing. ENDOCRINE: No reports of active diabetes for hypothyroidism. CARDIOVASCULAR: No reports of recent chest pain or heart attack. PSYCH: History of depression. No recent psychosis. HEMATOLOGIC: No reports of easy bruising or bleeding. No reports of DVTs or pulmonary embolism. NEURO: No reports of strokes or seizure disorders. SKIN: History of panniculitis. No skin cancer. PHYSICAL EXAM: VITAL SIGNS: 5 foot 3-2, 272 pounds. Body mass index of 47.6 CARDIOVASCULAR: Regular rate and rhythm. 2 + radial pulse. GENERAL: Well-developed female in no acute distress. HEENT: No scleral icterus. Extraocular movements grossly intact. Moist buccal mucosa. Head is atraumatic, normocephalic. NECK: Neck is supple without lymphadenopathy. No jugular venous distention. CHEST: Nonlabored respiratons. Equal bilateral excursions. ABDOMEN: Nontender. Nondistended. MUSCULOSKELETAL: No clubbing, cyanosis or edema. NEURO: Cranial nerves II through XII grossly intact. No focal or lateralizing signs. PSYCH: Appropriate affect. Alert and oriented to person, place and time. SKIN: Good skin turgor. Well perfused. ASSESSMENT: 1. Status post sleeve gastrectomy. 2. Body mass index reduced from 47.7 down to 46.6 3. Morbid obesity due to excess calories, resolved. 5. Osteoarthritis of lower back secondary to morbid obesity 6. Osteoarthritis of bilateral knees moderate to severe secondary to morbid obesity 7. 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 Depression without psychosis 9. Hypertensive heart disease without cardiomyopathy 10. Obstructive sleep apnea 11. Metabolic syndrome 12. Weight gain following bariatric procedure 13. Hypertriglyceridemia 14. Hypercholesterolemia 15. Hyperparathyroidism 16. Thyroid disorder 17. Complications sleeve gastrectomy 18. Hiatal hernia 19. Chronic fatigue PLAN: 1. Debbi-en-Y gastric bypass were reviewed in detail including complications. Robotic assisted approach described. 2. The [place] [facility] Data was also reviewed with benefits and risks as described. 3. An 8 page second-generation bariatric consent form was reviewed in detail including potential of bleeding, infection, leaks, adequate weight loss, nutritional deficiencies which the patient demonstrated understanding of the risks. 4. A 2 week high-protein low caloric 800 kcal diet described to address hepatomegaly. 5. Preoperative labs including complete metabolic panel and CBC with type and screen recommended. 6. DVT prophylaxis per [place] [facility]. 7. Antibiotic prophylaxis. 8. Inpatient hospitalization anticipated for more than 2 nights. 9. All questions and concerns were addressed with the patient. 10. The patient is at elevated risk for perioperative complications with sleep apnea and hypertensive heart disease. 11. Overall, patient has expressed understanding of bariatric care including postoperative diet and commitment of lifestyle. Patient should benefit from surgical intervention for correction of morbid obesity. Past Medical History Past Medical History: Fibromyalgia, GERD/Reflux, Hypertension, Osteoarthritis (OA), Skin Disorder, Thyroid Disorder Additional Past Medical History / Comment(s): ECZEMA, IBS, TROUBLE WITH FOOD GETTING STUCK IN THROAT AND INCREASED IBS SYMPTOMS. History of Any Multi-Drug Resistant Organisms: None Reported Past Surgical History: Bariatric Surgery, Section, Cholecystectomy, Orthopedic Surgery, Tubal Ligation, Uterine Ablation Additional Past Surgical History / Comment(s): Neuroma removed from right foot, left knee arthroscopy, SINUS SURGERY/ DEVIATED SEPTUM, panniculectomy, skin removal from bilateral legs, right foot plantar faciitis, PAIN CLINIC PROCEDURES, GASTRIC SLEEVE 2016, EGD, COLONOSCOPY, bunionectomy right foot. Past Anesthesia/Blood Transfusion Reactions: Motion Sickness, Postoperative Nausea & Vomiting (PONV) Smoking Status: Never smoker - Past Family History Mother Family Medical History: No Reported History Medications and Allergies Home Medications Medication Instructions Recorded Confirmed Type Vitamin A (10,000 Xm=9116 Mcg) 2,400 units PO DAILY 07/15/17 06/28/24 History Gabapentin [Neurontin] 300 mg PO TID 06/02/18 06/28/24 History Cetirizine HCl [Zyrtec] 10 mg PO DAILY 12/19/20 06/28/24 History Cyclobenzaprine [Flexeril] 5 mg PO HS PRN 12/19/20 06/28/24 History Ergocalciferol [Vitamin D2 (1250 1,250 mcg PO SUWE 12/19/20 06/28/24 History Mcg = 84854 Iu)] Iron 25 mg PO DAILY 12/19/20 06/28/24 History Nortriptyline HCl [Pamelor] 100 mg PO HS 01/10/22 06/28/24 History Levothyroxine Sodium 100 mcg PO QAM 06/28/24 06/28/24 History Levothyroxine Sodium [Synthroid] 50 mcg PO QAM 06/28/24 06/28/24 History Omeprazole [PriLOSEC] 40 mg PO QAM 06/28/24 06/28/24 History Allergies Allergy/AdvReac Type Severity Reaction Status Date / Time No Known Allergies Allergy Verified 06/28/24 12:34
[2024-07-04] MEDS ORDERED: MIDAZOLAM 2 MG/2 ML VIAL IV PRN (07:00)
[2024-07-04] MEDS: ACETAMINOPHEN TAB 500 MG TAB PO PRN (07:38)
[2024-07-04] MEDS: ALVIMOPAN 12 MG CAPSULE PO PRN (07:38)
[2024-07-04] MEDS: SCOPOLAMINE 1 MG/72 HR PATCH TRANSDERM STA (07:39)
[2024-07-04] MEDS: ONDANSETRON 4 MG/2 ML VIAL IVP PRN (07:39)
[2024-07-04] MEDS: HEPARIN SODIUM,PORCINE 5,000 UNIT/ML 1 ML VIAL SQ PRN (07:39)
[2024-07-04] MEDS: CHLORHEXIDINE GLUCONATE 15 ML CUP MUCOUS MEM STA (07:40)
[2024-07-04] MEDS: LACTATED RINGERS 1,000 ML IV SCH (07:53)
[2024-07-04] MEDS: IV FLUID CONTINUATION 1,000 ML IV ONE ×3 (07:53→08:34)
[2024-07-04] MEDS ORDERED: KETAMINE HCL IN 0.9 % NACL 50 MG/5 ML SYRINGE ONE (09:50)
[2024-07-04] MEDS ORDERED: fentaNYL (PF) 50 MCG/ML 2 ML AMP ONE (09:50)
[2024-07-04] MEDS ORDERED: LIDOCAINE 1% INJ 10MG/ML (20 ML MDV) ONE (09:50)
[2024-07-04] MEDS ORDERED: HYDROmorphone (PF) 1 MG/ML ONE (09:50)
[2024-07-04] MEDS ORDERED: ONDANSETRON 4 MG/2 ML VIAL ONE (09:50)
[2024-07-04] MEDS ORDERED: MIDAZOLAM 2 MG/2 ML VIAL ONE (09:50)
[2024-07-04] MEDS ORDERED: PROPOFOL 10 MG/ML 20 ML VIAL IV ONE (09:50)
[2024-07-04] MEDS ORDERED: GLYCOPYRROLATE 0.2 MG/ML 2 ML VIAL ONE (09:50)
[2024-07-04] MEDS ORDERED: PHENYLEPHRINE 10 MG/ML VIAL ONE (09:50)
[2024-07-04] MEDS ORDERED: diphenhydrAMINE 50 MG/ML 1 ML VIAL ONE (09:50)
[2024-07-04] MEDS ORDERED: SUCCINYLCHOLINE CHLORIDE 200 MG/10 ML VIAL IV ONE (09:50)
[2024-07-04] MEDS ORDERED: NEOSTIGMINE 1 MG/ML 10 ML VIAL ONE (09:50)
[2024-07-04] MEDS ORDERED: ROCURONIUM 10 MG/ML (5 ML VIAL) IV ONE (09:50)
[2024-07-04] MEDS: LIDOCAINE 1%-EPI 1:100,000 20 ML VIAL SQ ONE (10:28)
[2024-07-04] MEDS: LACTATED RINGERS 1,000 ML IV ONE (12:20)
[2024-07-04] MEDS ORDERED: NALOXONE 0.4 MG/ML 1 ML VIAL IV PRN ×2 (13:42→18:01)
[2024-07-04] MEDS ORDERED: diphenhydrAMINE 50 MG/ML 1 ML VIAL IVP PRN (13:43)
[2024-07-04] MEDS: HYDROmorphone 0.5 MG/0.5 ML SYRINGE IVP PRN (13:53)
--- NOTE | 2024-07-04 13:53 | P.OP ---
Date of Procedure: 07/04/24 Description of Procedure: SURGEON: NEELAM FLORES MD PREOPERATIVE DIAGNOSES: 1. Morbid obesity due to excess calories. 2. Body mass index reduced from 47.7 down to 45.8 3. Hiatal hernia 4. Complications sleeve gastrectomy 5. Osteoarthritis of lower back secondary to morbid obesity 6. Osteoarthritis of bilateral knees moderate to severe secondary to morbid obesity 7. 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 Depression without psychosis 9. Hypertensive heart disease without cardiomyopathy 10. Obstructive sleep apnea 11. Metabolic syndrome 12. Weight gain following bariatric procedure 13. Hypertriglyceridemia 14. Hypercholesterolemia 15. Hyperparathyroidism 16. Thyroid disorder 17. Chronic fatigue POSTOPERATIVE DIAGNOSES: 1. Morbid obesity due to excess calories. 2. Body mass index reduced from 47.7 down to 45.8 3. Hiatal hernia 4. Complications sleeve gastrectomy 5. Osteoarthritis of lower back secondary to morbid obesity 6. Osteoarthritis of bilateral knees moderate to severe secondary to morbid obesity 7. 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 Depression without psychosis 9. Hypertensive heart disease without cardiomyopathy 10. Obstructive sleep apnea 11. Metabolic syndrome 12. Weight gain following bariatric procedure 13. Hypertriglyceridemia 14. Hypercholesterolemia 15. Hyperparathyroidism 16. Thyroid disorder 17. Chronic fatigue OPERATION: 1. Robotic assisted da Nain Xi laparoscopic conversion from sleeve gastrectomy to Randall-en-Y gastric bypass, 100 cm antecolic antegastric Randall limb, with 25 mm EEA. 2. Intraoperative esophagogastrojejunoscopy for foreign body removal ANESTHESIA: GETA and local ESTIMATED BLOOD LOSS: 20 mL SPECIMENS REMOVED: None. COMPLICATIONS: NONE. Operative Findings: 1. Biliopancreatic limb 50 cm 2. Bypass performed using 100 cm randall limb secondary to avoid increased tension at 150 cm. 3. Jejunojejunostomy defect closed using 2-0 V LOC, green 4. Leak test negative with gastrojejunal anastomosis patent and hemostatic. 5. Reinforcement sutures were placed along the gastrojejunal anastomosis at 12:00, 9:00 and 3:00 6. No evidence of hepatomegaly or fatty liver disease. INDICATIONS: Mary Jaimes is a 48-year-old female, status post sleeve gastrectomy 07/11/2016. She is 8 years out from her procedure. She comes in with weight re-gain and new co-morbidities including osteoarthritis of the knees, hips and lower back. She has developed sleep apnea and metabolic syndrome. She reports chronic fatigue. She has hypothyroidism. She reports severe gastroesophageal reflux disease. She presents for gastric bypass to correct her morbid obesity including reflux disease. Her highest weight for her 5 feet frame was 273 pound. Morris body weight is 140 pounds. Body mass index is down from 47.7 down to 47.6. A second-generation bariatric consent form was described in detail including the possibility of protein malnutrition, leaks, gastrojejunal stricture, venous thrombosis, need for further surgery for which she demonstrated understanding. She also understands that a conversion surgery from sleeve to gastric bypass is for symptomatic relief of her gastroesophageal reflux disease. Benefits and risks of the procedure were described at length. Informed consent was obtained. DESCRIPTION: The patient was brought into the operating room theater. She was placed supine. She had received heparin subcutaneously for DVT prophylaxis. After general induction, the abdomen was prepped and draped in standard sterile fashion. Ioban draping was placed along the abdomen. A robotic da Nain Xi system was prepped and primed. Proposed trochars were placed along previous incisions from her hiatal hernia surgery, at least 12 cm inferior to the xiphoid process. Proposed port sites were marked with indelible marker along the anterior axillary line bilaterally, mid clavicular line bilaterally with each port marked 10 cm from each other. The robotic stapler port was marked for the right midclavicular line including along the left midclavicular line. A 5 mm 0 degrees laparoscopic trocar entry was performed along the left upper quadrant. The abdomen was insufflated to 15 mmHg pressure, which she tolerated well. Diagnostic laparoscopy demonstrated no injury to bowel, viscera, or mesentery. As a result of adhesions in the pelvis, initial attention was brought to lysis of adhesions in the pelvis. An 8 mm camera port was placed left lateral to the umbilicus at the epigastrium, 15 cm distal to the xiphoid. Next, 12-mm robot stapler port was placed along the right mid abdomen. An 12 mm port was exchanged along the left upper quadrant. An 8 mm port was placed on the left lateral abdominal wall under direct visualization Please note that the ports were placed 18 to 20 cm away from the target anatomy of the stomach. Care was taken to check that each robotic arm was safely away from collision with the bed or the patient. The patient was positioned in Trendelenburg position at 7 after lowering the bed. The robot was docked along the left side of the patient. Graspers were used for exploring the abdomen. Initial attention was brought to the pelvis and lower midline where vessel sealer was used for lysis of adhesion over 30 minutes. As all adhesions were addressed, attention brought to the gastric bypass portion of the procedure. The robot was undocked and the patient was repositioned. The patient was repositioned in reverse Trendelenburg position at 25-degrees after lowering the bed. The robot was docked over the patient. Using grasper for arm 3, a grasper for arm 1, including vessel sealer for arm 4, the robotic system was docked and primed as described. Instruments were interchanged by the benefits assistant including endoscissors, the needle driver engineer, and stapler. I had sat at the console. Next, the transverse mesocolon was reflected into the upper abdomen after dividing the mesentery and preparing for the jejunojejunostomy portion of the case. The ligament of Treitz was identified and measured 50 cm antegrade and marked using 3-0 Silk. The jejunum was divided at the 50 cm point using 60-mm white loads above the suture measurement. The biliopancreatic limb was held in place. The Randall limb was measured 100 cm in an antegrade fashion to avoid tension along the proposed gastrojejunal anastomosis. At 100 cm along the anti-mesenteric border of the Randall limb, a jejunojejunostomy was proposed whereby enterotomies were created along the biliopancreatic limb including the Randall limb using a Bovie cautery. A stay suture of 3-0 silk was placed to align and create the anastomosis. The enterotomies along the anti-mesenteric borders were created followed by unidirectional fire from the patient's right side using 60 mm blue loads [employer] technology robotic stapler. The jejunojejunostomy was found to be hemostatic. The enterotomy was closed after horizontal mattress stitch of 3-0 silk used to elevate the enterotomy followed by closure with the robotic stapler blue load. The jejunal limb was temporarily tacked along the left upper quadrant. Attention was now brought to the creation of the gastrojejunostomy. Her previous sleeve gastrectomy was investigated and no moderate defects were found along the hiatus which was scarred from her hiatal hernia surgery. Along the lesser curvature of the stomach, dissection was made along the retrogastric space to allow first firing of the robotic staple. Green load of 60 mm stapler x 1 was used to divide the stomach to create the gastric pouch. The patient was then prepared for placement of a Orvil. The patient was Mallampati 3. A 25-mm Orvil was selected for placement by the nurse retail sales merchandiser. The advancement of the tubing was held due to narrowing of the vocal cords. Intraoperative upper endoscopy was used to investigate the oropharynx with coordinated release of the Orvil tubing and removal of foreign body. The Orvil tubing was placed anterior to the staple line of the gastric pouch and brought out through the left inferior lateral port. I re-scrubbed into the case. The robotic arms were temporarily undocked. The Orvil was navigated into the gastric pouch. The sutures were identified and divided. The tubing was from the 25 mm anvil. As the Orvil had been placed, the blind jejunal limb was brought proximally into the upper abdomen. No torsion was found upon the Randall limb. No tension was identified as the limb was brought along the upper abdomen. The blind jejunal limb was previously opened using endo-scissors with cautery. The 25-mm EEA stapler was brought through the left anterior lateral port site from the left side. The EEA stapler was brought through the open jejunal limb and its needle was deployed at the antimesenteric border where the anvil were mated for approximately 1 minute upon firing. The stapler was removed after irrigating the shaft of the instrument with warm normal saline. Donuts were found to be intact and on both sides. The da Nain Xi robot arms were then re-docked. I sat at the console. The open jejunal limb defect was closed using 60 mm blue loads after releasing any tension from the blind jejunal limb. Care was taken to avoid any long blind limb to avoid redundancy of the blind limb. Reinforcement sutures were placed along the gastrojejunal anastomosis and placed along the 12:00, 9:00 and 3 o'clock position using 3-0 Vicryl. The Ospina defect and jejunojejunostomy mesenteric defect were closed using 2-0 V LOC, green. I then went to the head of the bed to perform the esophagogastrojejunoscopy and a leak test. An Olympus gastroscope was passed along the posterior oropharynx which was unremarkable for any injury to the vocal cords. The scope was passed down to the proximal portion of the pouch, whereby no active bleeding was encountered. Excellent visualization of the gastrojejunostomy anastomosis, including the Randall limb was encountered with endoscopic image obtained. The anastomosis was found to be patent. The gastrointestinal tract was desufflated. No evidence of intraoperative leak was encountered as the gastric pouch and anastomosis were submerged under normal saline solution. The robot was then undocked. I then went back to the bedside of the patient, whereby with coordinated effort of the benefits assistant, irrigation was aspirated from the upper abdominal cavity. Tisseel was placed circumferentially over the anastomosis of the gastrojejunostomy. The fascial defect of the EEA stapler was closed using Demetrius Love and 0 Vicryl. All instruments and pneumoperitoneum were evacuated from the abdominal cavity. The port correlating with the EEA stapler device was cleansed with normal saline solution and hydrogen peroxide. The rest of incisions were reapproximated using 4-0 Monocryl in an interrupted subcuticular fashion. Local anesthetic was infiltrated along the skin for postop analgesia. Liquid glue was applied to the skin. OptiFoam dressing was placed along the EEA stapler site. At the end of the procedure, needle, sponge and instrument count had been verified correct by the surgical aides teacher. The patient had tolerated the procedure well and was extubated and taken to the postanesthesia unit in stable condition. Intraoperative findings were described to the patient's family who were very pleased with the level of care.
[2024-07-04] MEDS: PANTOPRAZOLE 40 MG/10 ML VIAL IVP STA (16:21)
[2024-07-04] MEDS: GABAPENTIN 300 MG CAP PO SCH (16:22)
[2024-07-04] MEDS: ALBUTEROL NEBULIZED 2.5 MG/3 ML INHALATION SCH (16:22)
[2024-07-04] MEDS: SODIUM CHLORIDE 0.9% 2,000 ML IV ONE (17:08)
[2024-07-04] MEDS: HYDROmorphone 1 MG/ML 1 ML SYRINGE IVP PRN (17:59)
[2024-07-04] MEDS: 0.9% NACL WITH KCL 20 MEQ/L 1,000 ML IV SCH (18:17)
[2024-07-04] MEDS: ACETAMINOPHEN IV (For NPO) 1,000 MG in EMPTY BAG 1 BAG IVPB SCH (18:18)
[2024-07-04] MEDS: ONDANSETRON 4 MG/2 ML VIAL IVP SCH (18:28)
[2024-07-04] MEDS: SIMETHICONE 40 MG/0.6 ML DROPS 2,000 MG/30 ML BOTTLE PO SCH (18:29)
[2024-07-04] MEDS: fentaNYL PCA 500 MCG/50 ML BAG IV SCH (19:54)
[2024-07-04] MEDS: PANTOPRAZOLE 40 MG/10 ML VIAL IV SCH (23:09)
[2024-07-04] MEDS: HEPARIN SODIUM,PORCINE 5,000 UNIT/ML 1 ML VIAL SQ SCH (23:09)
[2024-07-05 08:27] LABS: Basophils # (A) 0.02 X 10*3/uL (0.00-0.10); Basophils % (A) 0.1 %; Eosinophils # (A) 0.01 X 10*3/uL (0.04-0.35); Eosinophils % (A) 0.1 %; HCT 36.8 % (37.2-46.3); HGB 12.1 g/dL (12.0-15.0); Lymphocytes # (A) 1.12 X 10*3/uL (0.90-5.00); Lymphocytes % (A) 7.1 %; MCH 30.1 pg (27.0-32.0); MCHC 32.9 g/dL (32.0-37.0); MCV 91.5 FL (80.0-97.0); Mean Platelet Volume 9.6 FL (9.5-12.2); Monocytes # (A) 0.76 X 10*3/uL (0.20-1.00); Monocytes % (A) 4.8 %; NRBC Per 100 WBC 0 X 10*3/uL (0.00-0.01); Neutrophils # (A) 13.85 X 10*3/uL (1.80-7.70); Neutrophils % (A) 87.6 %; Platelet Count 263 X 10*3/uL (140-440); RBC 4.02 X 10*6/uL (4.10-5.20); RDW 12.9 % (11.5-14.5); WBC 15.81 X 10*3/uL (4.50-10.00)
[2024-07-05 08:43] LABS: Blood Urea Nitrogen 5.3 mg/dL (9.0-27.0); Calcium 8.2 mg/dL (8.7-10.3); Carbon Dioxide 22.8 mmol/L (21.6-31.8); Chloride 103 mmol/L (96-109); Phosphorus 2.8 mg/dL (2.4-5.1); Potassium 4.4 mmol/L (3.5-5.5); Sodium 136 mmol/L (135-145)
[2024-07-05] MEDS: LORATADINE 10 MG TAB PO SCH (10:31)
[2024-07-05 12:03] VITALS: BMI 45.7
--- NOTE | 2024-07-05 13:27 | FL ---
EXAMINATION TYPE: FL UGI DATE OF EXAM: 07/05/2024 COMPARISON: 02/11/2024 HISTORY: 48-year-old female postop bariatric surgery, revision to Debbi-en-Y gastric bypass from sleep gastrectomy due to reflux. TECHNIQUE: Single contrast exam performed with 50 ml Isovue-370 contrast. Total fluoroscopy time 55 seconds. Total images: None. Real-time fluoroscopy support was provided to speech pathology. Total DAP: 50 mGycm2. FINDINGS: The patient swallowed oral contrast without difficulty or delay. Esophageal peristalsis and motility are within normal limits. There is prompt passage of contrast from the esophagus into the stomach a nd subsequently across the gastrojejunostomy. No abnormal narrowing is identified. No post surgical f ree air seen. IMPRESSION: No evidence for leak or obstruction status post revision bariatric surgery with conversion to Debbi-en -Y gastric bypass from previous gastric sleeve.
[2024-07-05] MEDS ORDERED: ACETAMINOPHEN IV (For NPO) 1,000 MG in EMPTY BAG 1 BAG IVPB SCH (15:00)
--- NOTE | 2024-07-05 15:02 | P.PN ---
Subjective Progress Note Date: 07/05/24 CHIEF COMPLAINT: Morbid obesity HISTORY OF PRESENT ILLNESS: Patient postop day #1 status post robotic conversion from sleeve gastrectomy to Debbi-en-Y gastric bypass. Patient's oral intake has been poor. She is only drank about 6 ounces of fluids today. Patient was without IV access for a few hours today IV fluids did not get restarted until noon. Patient does report that her urine is dark. Her pain is controlled. She did have nausea earlier that seems to improved. Upper GI shows no evidence of leak or obstruction. WBC is 15.8 Hgb 12.1 platelets 263 sodium 136 potassium 4.4 creatinine 0.6 magnesium 2.0 PHYSICAL EXAM: VITAL SIGNS: Reviewed GENERAL: Well-developed in no acute distress. HEENT: No sclera icterus. Extraocular movements grossly intact. Moist buccal mucosa. Head is atraumatic, normocephalic. Hears conversational speech. No nasal drainage. NECK: Supple without lymphadenopathy. CHEST: Non-labored respirations and equal bilateral excursions. CARDIOVASCULAR: Palpable 2+ radial pulses. ABDOMEN: Soft. Nondistended. Abdominal binder in place MUSCULOSKELETAL: No clubbing or cyanosis. NEUROLOGIC: No focal or lateralizing signs. Cranial nerves II through XII samuel sly intact. PSYCH: Appropriate affect. Alert and oriented to person, place and time. SKIN: Well perfused. Good skin turgor. ASSESSMENT: 1. Morbid obesity due to excess calories. 2. Body mass index reduced from 47.7 down to 45.8 3. Hiatal hernia 4. Complications sleeve gastrectomy 5. Osteoarthritis of lower back secondary to morbid obesity 6. Osteoarthritis of bilateral knees moderate to severe secondary to morbid obesity 7. 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 Depression without psychosis 9. Hypertensive heart disease without cardiomyopathy 10. Obstructive sleep apnea 11. Metabolic syndrome 12. Weight gain following bariatric procedure 13. Hypertriglyceridemia 14. Hypercholesterolemia 15. Hyperparathyroidism 16. Thyroid disorder 17. Chronic fatigue 18. Leukocytosis likely reactive from the [place] PLAN: -Give 2 L fluid bolus for dehydration -Continue IV fluid hydration -Encourage patient to increase her liquid intake -Encourage patient to ambulate -IV Tylenol resume pain medication -Anticipate discharge tomorrow -Repeat CBC in a.m. -Continue antiemetics -DVT prophylaxis subcu heparin Physician Flavorings Compounder note has been reviewed by physician. Signing provider agrees with the documented findings, assessment, and plan of care. Objective - Vital Signs Vital signs: Vital Signs Temp 99.1 F 07/05/24 11:58 Pulse 80 07/05/24 11:58 Resp 16 07/05/24 11:58 BP 124/63 07/05/24 11:58 Pulse Ox 96 07/05/24 07:35 FiO2 Intake & Output 07/04/24 07/05/24 07/05/24 18:59 06:59 18:59 Intake Total 2250 Output Total 20 Balance 2230 Weight 117.2 kg 117.2 kg Intake: IV 2250 Output: Estimated Blood Loss 20 Other: # Voids 3 - Labs CBC & Chem 7: 07/05/24 04:29 07/05/24 04:29 Labs: Abnormal Lab Results - Last 24 Hours (Table) 07/05/24 07/05/24 Range/Units 04:29 04:29 WBC 15.81 H (4.50-10.00) X 10*3/uL RBC 4.02 L (4.10-5.20) X 10*6/uL Hct 36.8 L (37.2-46.3) % Immature Gran # 0.05 H (0.00-0.04) X 10*3/uL Neutrophils # 13.85 H (1.80-7.70) X 10*3/uL Eosinophils # 0.01 L (0.04-0.35) X 10*3/uL BUN 5.3 L (9.0-27.0) mg/dL Calcium 8.2 L (8.7-10.3) mg/dL
[2024-07-05] MEDS: SODIUM CHLORIDE 0.9% 2,000 ML IV ONE (15:54)
[2024-07-05] MEDS: 0.9% NACL WITH KCL 20 MEQ/L 1,000 ML IV SCH (19:53)
[2024-07-05] MEDS: METOCLOPRAMIDE 5 MG/ML 2 ML VIAL IVP PRN (21:04)
[2024-07-05] MEDS: ACETAMINOPHEN IV (For NPO) 1,000 MG in EMPTY BAG 1 BAG IVPB SCH (21:46)
[2024-07-05] MEDS: MAGNESIUM SULFATE-D5W PMX 1 GM in DEXTROSE/WATER 1 100ML.BAG IVPB SCH (23:25)
[2024-07-06] MEDS: ACETAMINOPHEN IV (For NPO) 1,000 MG in EMPTY BAG 1 BAG IVPB SCH (05:13)
[2024-07-06 06:56] VITALS: PULSE 88; RESP 16
[2024-07-06 07:12] LABS: Basophils % (A) 0 %; Eosinophils # (A) 0.2 k/uL (0-0.7); Eosinophils % (A) 1 %; HCT 36.6 % (34.0-46.0); HGB 11.4 gm/dL (11.4-16.0); Lymphocytes % (A) 7 %; MCH 29.4 pg (25.0-35.0); MCHC 31.3 g/dL (31.0-37.0); MCV 93.9 fL (80.0-100.0); Mean Platelet Volume 7.2; Monocytes # (A) 0.5 k/uL (0-1.0); Monocytes % (A) 4 %; Neutrophils % (A) 87 %; Platelet Count 288 k/uL (150-450); WBC 13.8 k/uL (3.8-10.6)
[2024-07-06 12:16] VITALS: TEMP 98.3
[2024-07-06 12:24] VITALS: BP 119/61
--- NOTE | 2024-07-06 12:24 | P.DS ---
Providers Date of admission: 07/04/24 06:39 Expected date of discharge: 07/06/24 Attending physician: Luz Vivar Primary care physician: [facility] Course: Discharge diagnosis 1. Morbid obesity due to excess calories. 2. Body mass index reduced from 47.7 down to 45.8 3. Hiatal hernia 4. Complications sleeve gastrectomy 5. Osteoarthritis of lower back secondary to morbid obesity 6. Osteoarthritis of bilateral knees moderate to severe secondary to morbid obesity 7. 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 Depression without psychosis 9. Hypertensive heart disease without cardiomyopathy 10. Obstructive sleep apnea 11. Metabolic syndrome 12. Weight gain following bariatric procedure 13. Hypertriglyceridemia 14. Hypercholesterolemia 15. Hyperparathyroidism 16. Thyroid disorder 17. Chronic fatigue 18. Leukocytosis likely reactive from the [facility] course Mary Jaimes is a 48-year-old female, status post sleeve gastrectomy 07/11/2016. She is 8 years out from her procedure. She comes in with weight re-gain and new co-morbidities including osteoarthritis of the knees, hips and lower back. She has developed sleep apnea and metabolic syndrome. She reports chronic fatigue. She has hypothyroidism. She reports severe gastroesophageal reflux disease. Patient is status post Robotic assisted da Nain Xi laparoscopic conversion from sleeve gastrectomy to Debbi-en-Y gastric bypass. Patient is tolerating diet. Her upper GI showed no evidence of leak or obstruction. Her pain is controlled. She has ambulated. She is afebrile. She is stable for discharge. Physician Field Ironworker note has been reviewed by physician. Signing provider agrees with the documented findings, assessment, and plan of care. Patient Condition at Discharge: Stable Plan - Discharge Summary Discharge Rx Participant: No New Discharge Prescriptions: New bisacodyL [Dulcolax] 5 mg PO DAILY PRN #10 tab PRN Reason: Constipation Omeprazole [PriLOSEC] 40 mg PO DAILY #90 cap Ondansetron Odt [Zofran Odt] 4 mg PO Q8HR PRN #9 tab PRN Reason: Nausea Enoxaparin [Lovenox] 40 mg SQ DAILY 14 Days #14 each Simethicone 40 mg/0.6 ml Drops [Mylicon Drops] 40 mg PO PCHS PRN #30 ml PRN Reason: Gas Acetaminophen Tab [Tylenol] 1,000 mg PO Q6HR PRN #30 tablet PRN Reason: Pain Continue Gabapentin [Neurontin] 300 mg PO TID Cyclobenzaprine [Flexeril] 5 mg PO HS PRN PRN Reason: Muscle Spasm Cetirizine HCl [Zyrtec] 10 mg PO DAILY Nortriptyline HCl [Pamelor] 100 mg PO HS Levothyroxine Sodium [Synthroid] 50 mcg PO QAM Levothyroxine Sodium 100 mcg PO QAM Discontinued Vitamin A (10,000 Kf=1650 Mcg) 2,400 units PO DAILY Iron 25 mg PO DAILY Ergocalciferol [Vitamin D2 (1250 Mcg = 20451 Iu)] 1,250 mcg PO SUWE Omeprazole [PriLOSEC] 40 mg PO QAM Discharge Medication List Gabapentin [Neurontin] 300 mg PO TID 06/02/18 [History] Cetirizine HCl [Zyrtec] 10 mg PO DAILY 12/19/20 [History] Cyclobenzaprine [Flexeril] 5 mg PO HS PRN 12/19/20 [History] Nortriptyline HCl [Pamelor] 100 mg PO HS 01/10/22 [History] Levothyroxine Sodium 100 mcg PO QAM 06/28/24 [History] Levothyroxine Sodium [Synthroid] 50 mcg PO QAM 06/28/24 [History] Acetaminophen Tab [Tylenol] 1,000 mg PO Q6HR PRN #30 tablet 07/06/24 [Rx] Enoxaparin [Lovenox] 40 mg SQ DAILY 14 Days #14 each 07/06/24 [Rx] Omeprazole [PriLOSEC] 40 mg PO DAILY #90 cap 07/06/24 [Rx] Ondansetron Odt [Zofran Odt] 4 mg PO Q8HR PRN #9 tab 07/06/24 [Rx] Simethicone 40 mg/0.6 ml Drops [Mylicon Drops] 40 mg PO PCHS PRN #30 ml 07/06/24 [Rx] bisacodyL [Dulcolax] 5 mg PO DAILY PRN #10 tab 07/06/24 [Rx] Follow up Appointment(s)/Referral(s): Bariatric [place], [place] [NON-STAFF] - 07/08/24 9:00 am Activity/Diet/Wound Care/Special Instructions: Liquid diet only for 2 weeks No lifting over 4 pounds in 4 weeks, May Shower. No soaking in bath tubs for 2 weeks Please notify your surgeon if you develop nausea and vomiting including new onset of abdominal pain. Continue to use incentive spirometry to prevent pneumonias. Please continue to ambulate at home to prevent blood clots in legs. Follow-up at the bariatric center. May shower. Dressings to be discontinued by surgeon in the office. Drink 64 oz of fluid daily. Start protein shakes on . Notify bariatric center for temp over 101.0, increased pain, drainage from incisions. No straws or carbonated beverages. Liquid diet only. Sugar content should be less than 6 g to avoid dumping syndrome. Take MOM for constipation. CRUSH, OPEN, OR CUT TABLETS LARGER THAN A SIZE OF A TIC TAC Hold on taking all vitamins and supplements due to increase bleeding risk Discharge Disposition: HOME SELF-CARE
--- NOTE | 2024-07-26 13:08 | CDI ---
Documentation Clarification Form Date: 07/26/2024 12:18:50 PM From: Frances Beth RN CCDS Phone: [phone] Admit Date: 07/04/2024 06:39:00 AM Patient Name: Mary Jaimes Visit Number: [id number] Discharge Date: 07/06/2024 02:37:00 PM ATTENTION: The Clinical Documentation Specialists (CDI) and [facility] Coding Staff appreciate your assistance in clarifying documentation. Please respond to the clarification below the line at the bottom and electronically sign. The CDI & [facility] Coding staff will review the response and follow-up if needed. Please note: Queries are made part of the Legal Health Record. If you have any questions, please contact the author of this message via ITS. Doctor: Luz Vivar Complications sleeve gastrectomy is documented 07/04, HP, 07/04 Procedure note and patient had Robotic assisted daVinci Xi laparoscopic conversion from sleeve gastrectomy to Debbi-en-Y gastric bypass, 100cm antecolic antegastric Dbebi limb, with 25mm EEA. Additional clarification is requested regarding the relationship, if any, that exists between the diagnosis and the procedure. Patients Admitting Diagnosis: 1.Morbid obesity due to excess calories. 2.Body mass indexreducedfrom 47.7 down to 45.8 3.Hiatal hernia 4.Complicationssleeve gastrectomy 5.Osteoarthritisof lower back secondary tomorbid obesity 6.Osteoarthritis of bilateral kneesmoderate to severe secondary tomorbid obesity 7.Osteoarthritisof the bilateral hips secondary tomorbid obesity, moderate 8.Depressionwithoutpsychosis 9.Hypertensive heart diseasewithoutcardiomyopathy 10.Obstructive sleep apnea 11.Metabolic syndrome 12.Weight gainfollowingbariatric procedure 13.Hypertriglyceridemia 14.Hypercholesterolemia 15.Hyperparathyroidism 16.Thyroid disorder 17.Chronicfatigue Post-Operative Diagnosis: Same as admitting diagnosis Procedure performed: 1.Robotic assisted da Nain Xi laparoscopic conversion from sleeve gastrectomy to Debbi-en-Y gastric bypass, 100 cm antecolic antegastric Debbi limb, with 25 mm EEA. 2.Intraoperative esophagogastrojejunoscopy for foreign body removal History/Risk Factors: 48 year old female presents for gastric bypass to correct her morbid obesity including her reflux disease. The patient status post sleeve gastrectomy 07/11/2016. She is 8 years out from her procedure. She comes in with weight gain and new comorbidities including osteoarthritis of the knees, hips and lower back. She has developed sleep apnea and metabolic syndrome. She reports chronic fatigue. She has hypothyroidism. She was lost to follow up. Medical History: OA randall knees, OA randall Hips, OA of the lower back, SARINA, Metabolic Syndrome and Morbid Obesity due to excess calories, BMI 47.7 initial. HP, 07/04 Clinical Indicators: Operation: 1.Robotic assisted da Nain Xi laparoscopic conversion from sleeve gastrectomy to Debbi-en-Y gastric bypass, 100 cm antecolic antegastric Debbi limb, with 25 mm EEA. 2.Intraoperative esophagogastrojejunoscopy for foreign body removal Her previous sleeve gastrectomy was investigated and no moderate defects were found along the hiatus which was scarred from her hiatal hernia surgery Treatment: Robotic assisted daVinciXi laparoscopic conversion from sleeve gastrectomy to Debbi-en-Y gastric bypass, 100cm antecolic antegastric Debbi limb, with 25mm EEA. Intraoperative esophagogastrojejunoscopy. Please Clarify complications sleeve gastrectomy: [ ] Complications of sleeve gastrectomy were confirmed please specify [ X ] Complications of sleeve gastrectomy has been ruled out [ ] Other please specify ____ [ ] Unable to determine (Template Last Revised: December 2020) MTDD
== END 2024-07-06 14:37 | disposition home or self-care (01) | DRG 621 ==
LOC: 2ORMAIN 06:39 → 4SSUR 15:59
PROVIDERS: ADMIT Surgery Plastic and Reconstructive Surgery; ATTEND Surgery Plastic and Reconstructive Surgery
PROC: 0DNW4ZZ Release Peritoneum, Percutaneous Endoscopic Approach (ICD-10-PCS; 2024-07-04)
PROC: 0DB64Z3 Excision of Stomach, Percutaneous Endoscopic Approach, Vertical (ICD-10-PCS; 2024-07-04)
PROC: 8E0W4CZ Robotic Assisted Procedure of Trunk Region, Percutaneous Endoscopic Approach (ICD-10-PCS; 2024-07-04)
PROC: 0D164ZA Bypass Stomach to Jejunum, Percutaneous Endoscopic Approach (ICD-10-PCS; principal; 2024-07-04 08:00)
DX: E66.01 Morbid (severe) obesity due to excess calories (principal); Z68.42 Body mass index [BMI] 45.0-49.9, adult; I11.9 Hypertensive heart disease without heart failure; F32.A Depression, unspecified; E21.3 Hyperparathyroidism, unspecified; D72.828 Other elevated white blood cell count; K44.9 Diaphragmatic hernia without obstruction or gangrene; M17.0 Bilateral primary osteoarthritis of knee; M16.0 Bilateral primary osteoarthritis of hip; G47.33 Obstructive sleep apnea (adult) (pediatric); E88.810 Metabolic syndrome; E78.1 Pure hyperglyceridemia; E78.00 Pure hypercholesterolemia, unspecified; R53.82 Chronic fatigue, unspecified; K21.9 Gastro-esophageal reflux disease without esophagitis; N73.6 Female pelvic peritoneal adhesions (postinfective); T38.0X5A Adverse effect of glucocorticoids and synthetic analogues, initial encounter; Y73.3 Surgical instruments, materials and gastroenterology and urology devices (including sutures) associated with adverse incidents; Z79.890 Hormone replacement therapy; Z79.899 Other long term (current) drug therapy
CPT/HCPCS: 74240; 80051; 81025; 82310; 82565; 83735; 84100; 84520; 85025

== ENCOUNTER → 2024-08-03 | Outpatient (CLI) | payer BC ==
[2024-08-03 16:36] VITALS: BP 144/82; PULSE 98; RESP 16; TEMP 98; BMI 42.3
--- NOTE | 2024-08-03 16:41 | P.BASOAP ---
Subjective Progress Note Date: 08/03/24 No heartburn. Had redness. Has drainage from incision over 2 weeks ago. Used H2o2 and dial jul 17. She reports drainage. Not getting enough protein. Wound dressed. She lost 25 pounds in 5 weeks. RTW Aug 22. Increase 80 grams. Objective - Vital Signs Vital signs: Vital Signs Temp 98.0 F 08/03/24 16:28 Pulse 98 08/03/24 16:28 Resp 16 08/03/24 16:28 BP 144/82 08/03/24 16:28 Pulse Ox FiO2 Intake & Output 08/02/24 08/03/24 08/03/24 18:59 06:59 18:59 Weight 110.223 kg Assessment/Plan Plan: Date: 08/03/24 Initial Weight: 121.608 kg Initial BMI: 46.7 Current Weight: 110.223 kg Current BMI: 42.3 Type of Surgery: Total Volume in Band: Previous Volume: Volume Removed: Volume Added: Band Size:
== END ==
LOC: BARWHC3 15:16
PROVIDERS: ATTEND Surgery Plastic and Reconstructive Surgery
DX: E66.01 Morbid (severe) obesity due to excess calories (principal); Z71.3 Dietary counseling and surveillance; Z68.41 Body mass index [BMI] 40.0-44.9, adult
CPT/HCPCS: 97803; G0463; 99211

== ENCOUNTER → 2024-10-12 | Outpatient (CLI) | payer BC ==
[2024-10-12 19:34] VITALS: BP 131/82; PULSE 77; RESP 16; TEMP 98; BMI 39.2
--- NOTE | 2024-10-12 19:34 | P.BASOAP ---
Subjective Progress Note Date: 10/12/24 She is losing 50 pounds in 3 months. She is doing everything well. NO more GERD. No regrets on the bypass. Has scar of foreign body under the skin. Needs 75 grams protein. Objective - Vital Signs Vital signs: Vital Signs Temp 98.0 F 10/12/24 17:14 Pulse 77 10/12/24 17:14 Resp 16 10/12/24 17:14 BP 131/82 10/12/24 17:14 Pulse Ox FiO2 Intake & Output 10/11/24 10/12/24 10/12/24 18:59 06:59 18:59 Weight 102.058 kg Assessment/Plan Plan: Date: 10/12/24 Initial Weight: 121.608 kg Initial BMI: 46.7 Current Weight: 102.058 kg Current BMI: 39.2 Type of Surgery: Total Volume in Band: Previous Volume: Volume Removed: Volume Added: Band Size:
== END ==
LOC: BARWHC3 15:59
PROVIDERS: ATTEND Surgery Plastic and Reconstructive Surgery
DX: E66.01 Morbid (severe) obesity due to excess calories (principal); Z68.39 Body mass index [BMI] 39.0-39.9, adult
CPT/HCPCS: 99211

== ENCOUNTER → 2025-01-18 | Outpatient (CLI) | payer BC ==
[2025-01-18 16:34] VITALS: BP 140/82; PULSE 84; RESP 16; TEMP 97.4; BMI 34.3
--- NOTE | 2025-01-18 16:43 | P.BASOAP ---
Subjective Progress Note Date: 01/18/25 She lost 80 June. She is 6 months. No further GERD. No more pain. She is taking MVI. [place] 2x to get calcium. Labs check done. No dysphagia. Maxgia for pain. Calcium and iron not together. Objective - Vital Signs Vital signs: Vital Signs Temp 97.4 F L 01/18/25 16:26 Pulse 84 01/18/25 16:26 Resp 16 01/18/25 16:26 BP 140/82 01/18/25 16:26 Pulse Ox FiO2 Intake & Output 01/17/25 01/18/25 01/18/25 18:59 06:59 18:59 Weight 89.358 kg Assessment/Plan Plan: Date: 01/18/25 Initial Weight: 121.608 kg Initial BMI: 46.7 Current Weight: 89.358 kg Current BMI: 34.3 Type of Surgery: Total Volume in Band: Previous Volume: Volume Removed: Volume Added: Band Size:
== END ==
LOC: BARWHC3 16:19
PROVIDERS: ATTEND Surgery Plastic and Reconstructive Surgery
DX: E66.01 Morbid (severe) obesity due to excess calories (principal); Z68.34 Body mass index [BMI] 34.0-34.9, adult
CPT/HCPCS: 99211

== ENCOUNTER → 2025-01-18 | Outpatient (CLI) | payer BC ==
[2025-01-18 17:28] LABS: INR 0.9 (<1.2); Partial Thromboplastin Time 24.8 sec (22.0-30.0); Prothrombin Time 10.3 sec (10.0-12.5)
[2025-01-19 01:52] LABS: HCT 40.6 % (37.2-46.3); HGB 13.1 g/dL (12.0-15.0); MCH 29.8 pg (27.0-32.0); MCHC 32.3 g/dL (32.0-37.0); MCV 92.5 FL (80.0-97.0); Mean Platelet Volume 9.7 FL (9.5-12.2); NRBC Per 100 WBC 0 X 10*3/uL (0.00-0.01); Platelet Count 331 X 10*3/uL (140-440); RBC 4.39 X 10*6/uL (4.10-5.20); RDW 12.7 % (11.5-14.5); WBC 9.48 X 10*3/uL (4.50-10.00)
[2025-01-19 02:33] LABS: Prealbumin 18.1 mg/dL (18.0-42.0)
[2025-01-19 02:46] LABS: % Iron Saturation 13.09 (12.00-45.00); ALT 27 U/L (8-44); AST 25 U/L (13-35); Albumin 4.2 g/dL (3.8-4.9); Alkaline Phosphatase 106 U/L (41-126); BUN/Creat Ratio 23.14 Ratio (12.00-20.00); Blood Urea Nitrogen 16.2 mg/dL (9.0-27.0); Calcium 9.2 mg/dL (8.7-10.3); Carbon Dioxide 25.8 mmol/L (21.6-31.8); Chloride 103 mmol/L (96-109); Chol/HDL Ratio 3.28 Ratio; Globulin 2.1 g/dL (1.6-3.3); Glucose 79 mg/dL (70-110); Iron 39 UG/DL (50-170); LDL Cholesterol,Calculated 85.2 mg/dL (0.0-131.0); Phosphorus 3.7 mg/dL (2.4-5.1); Sodium 140 mmol/L (135-145); Total Bilirubin <0.2 mg/dL (0.3-1.2); Total Iron Binding Capacity 298 UG/DL (228-460); Total Protein 6.3 g/dL (6.2-8.2)
[2025-01-19 12:36] LABS: Zinc, Serum 69 ug/dL (60-130)
[2025-01-20 08:35] LABS: Vit B1(Thiamine) 76 ug/L (38-122)
[2025-01-20 09:57] LABS: Vitamin A 44 ug/dL (38-106)
== END | disposition home or self-care (01) ==
LOC: LABWHC1 15:54
PROVIDERS: ATTEND Surgery Plastic and Reconstructive Surgery
DX: E66.01 Morbid (severe) obesity due to excess calories (principal); E89.1 Postprocedural hypoinsulinemia; K50.90 Crohn's disease, unspecified, without complications; D50.9 Iron deficiency anemia, unspecified; K91.2 Postsurgical malabsorption, not elsewhere classified; E44.0 Moderate protein-calorie malnutrition; E45 Retarded development following protein-calorie malnutrition; E55.9 Vitamin D deficiency, unspecified; K74.1 Hepatic sclerosis; N19 Unspecified kidney failure; T56.894A Toxic effect of other metals, undetermined, initial encounter
CPT/HCPCS: 36415; 80053; 80061; 82306; 82525; 82607; 82728; 82746; 83036; 83540; 83550; 83735; 83970; 84100; 84134; 84255; 84425; 84443; 84590; 84630; 85027; 85610; 85730

== ENCOUNTER → 2025-04-19 | Outpatient (CLI) | payer BC ==
[2025-04-19 15:38] VITALS: BP 110/55; PULSE 80; RESP 16; TEMP 97.9; BMI 31.4
[2025-04-19 16:10] LABS: INR 0.9 (<1.2); Prothrombin Time 10.1 sec (10.0-12.5)
[2025-04-19 16:11] LABS: Partial Thromboplastin Time 23.7 sec (22.0-30.0)
--- NOTE | 2025-04-19 16:38 | P.BASOAP ---
Subjective Progress Note Date: 04/19/25 She is drinking 64 oz of water. She reports low blood pressure. Getting 100 oz daily of water. She wants to get down to 150 pounds. She does not do a food journal. 100 grams of protein. Needs labs. Looks great. No reflux. Can stop omeprazole Objective - Vital Signs Vital signs: Vital Signs Temp 97.9 F 04/19/25 15:35 Pulse 80 04/19/25 15:35 Resp 16 04/19/25 15:35 BP 110/55 04/19/25 15:35 Pulse Ox FiO2 Intake & Output 04/18/25 04/19/25 04/19/25 18:59 06:59 18:59 Weight 81.647 kg Assessment/Plan Plan: Date: 04/19/25 Initial Weight: 121.608 kg Initial BMI: 46.7 Current Weight: 81.647 kg Current BMI: 31.4 Type of Surgery: Vertical Sleeve Gastrectomy Total Volume in Band: Previous Volume: Volume Removed: Volume Added: Band Size:
[2025-04-19 19:30] LABS: HCT 40.7 % (37.2-46.3); HGB 13.3 g/dL (12.0-15.0); MCH 30.2 pg (27.0-32.0); MCHC 32.7 g/dL (32.0-37.0); MCV 92.3 FL (80.0-97.0); Mean Platelet Volume 9.4 FL (9.5-12.2); NRBC Per 100 WBC 0 X 10*3/uL (0.00-0.01); Platelet Count 292 X 10*3/uL (140-440); RBC 4.41 X 10*6/uL (4.10-5.20); RDW 12.6 % (11.5-14.5)
[2025-04-19 22:27] LABS: Prealbumin 19.6 mg/dL (18.0-42.0)
[2025-04-19 22:47] LABS: % Iron Saturation 16.08 (12.00-45.00); ALT 29 U/L (8-44); AST 28 U/L (13-35); Albumin 4.2 g/dL (3.8-4.9); Alkaline Phosphatase 95 U/L (41-126); BUN/Creat Ratio 23.86 Ratio (12.00-20.00); Blood Urea Nitrogen 16.7 mg/dL (9.0-27.0); Calcium 8.9 mg/dL (8.7-10.3); Carbon Dioxide 21.8 mmol/L (21.6-31.8); Chloride 104 mmol/L (96-109); Chol/HDL Ratio 3.13 Ratio; Glucose 87 mg/dL (70-110); Iron 50 UG/DL (50-170); LDL Cholesterol,Calculated 104.9 mg/dL (0.0-131.0); Phosphorus 3.9 mg/dL (2.4-5.1); Potassium 4.5 mmol/L (3.5-5.5); Sodium 141 mmol/L (135-145); Total Bilirubin 0.2 mg/dL (0.3-1.2); Total Iron Binding Capacity 311 UG/DL (228-460); Total Protein 6.2 g/dL (6.2-8.2); VLDL Calculation 17.64 mg/dL (5.00-40.00)
[2025-04-20 10:57] LABS: Zinc, Serum 64 ug/dL (60-130)
[2025-04-21 06:10] LABS: Vitamin A 49 ug/dL (38-106)
== END ==
LOC: BARWHC3 14:53
PROVIDERS: ATTEND Surgery Plastic and Reconstructive Surgery
DX: E66.01 Morbid (severe) obesity due to excess calories (principal); D50.8 Other iron deficiency anemias; K91.2 Postsurgical malabsorption, not elsewhere classified; E44.1 Mild protein-calorie malnutrition; E45 Retarded development following protein-calorie malnutrition; K74.1 Hepatic sclerosis; N19 Unspecified kidney failure; T56.894A Toxic effect of other metals, undetermined, initial encounter; K50.90 Crohn's disease, unspecified, without complications; Z68.31 Body mass index [BMI] 31.0-31.9, adult
CPT/HCPCS: 80053; 80061; 82306; 82525; 82607; 82728; 82746; 83036; 83540; 83550; 83735; 83970; 84100; 84134; 84255; 84425; 84443; 84590; 84630; 85027; 85610; 85730; 99211